=== PATIENT | female | born 1945 | race Caucasian/White ===

== ENCOUNTER → 2017-03-30 | Day surgery (SDC) | payer OTHER ==
[2017-03-28 12:23] LABS: BASO % 0.2 %; BASO ABS # 0.02 K/uL (0-0.2); COMPLETE YES; EOS % 1.6 %; HEMATOCRIT 38.6 % (37-47); IG% 0.2 %; LYMPH % 23.5 %; LYMPH ABS # 2.16 K/uL (1.2-3.4); MEAN CELL VOLUME 90.2 fL (80-100); MEAN CORPUSCULAR HEMOGLOBIN 29.4 pg (25-34); MEAN CORPUSCULAR HGB CONC 32.6 g/dl (32-36); MEAN PLATELET VOLUME 9.5 fL (7.4-10.4); MONO % 6.2 %; NEUT % 68.3 %; PLATELET COUNT 262 K/uL (130-400); RED BLOOD COUNT 4.28 M/uL (4.2-5.4)
[2017-03-28 13:06] LABS: BLOOD UREA NITROGEN 14 mg/dl (7-18); BUN/CREATININE RATIO 14.7 (10-20); CARBON DIOXIDE 27 mmol/L (21-32); CHLORIDE 100 mmol/L (98-107); CREATININE 0.93 mg/dl (0.60-1.20); GLUCOSE 215 mg/dl (70-99); POTASSIUM 4.4 mmol/L (3.5-5.1); SODIUM 139 mmol/L (136-145)
[2017-03-28 13:08] LABS: CALCIUM 9.3 mg/dl (8.5-10.1)
[2017-03-28 15:10] VITALS: Ht 154.9 cm; Wt 59.5 kg
[~2017-03-30] VITALS: Ht 154.9 cm; Wt 59.5 kg
[~2017-03-30] MED LIST: ALBU0.5N2 NEB; ASTIN/15 NAE; ATROPINE SULFATE 0.1 MG/ML 5ML SYR IV PRN; BUPIVACAINE/EPINEPHRINE 0.25% 1:200,000 30 ML VIAL ONE; BUPIVACAINE/EPINEPHRINE 0.5% MPF 1:200,000 30 ML VIAL ONE; CALC-452 PO; CEFAZOLIN 2000 MG/60 ML D5W IV SCH; DEXAMETHASONE SOD INJ 4 MG/ML VIAL ONE; EpHEDrine SULFATE INJ 50 MG/ML AMP IV PRN; EpINEphrine INJ 1MG/ML AMP 1 MG/ML AMP ONE; FENTANYL CITRATE INJ 50 MCG/1 ML 2 ML VIAL IV PRN; FENTANYL CITRATE INJ 50 MCG/1 ML 2 ML VIAL ONE; FURO20TA PO; GLC500 PO; GLIP-199 PO; IBUP-1451 PO; IPRA0.03 NAE; KETO10TA PO; LABETALOL HCL IV 5 MG/ML 20ML IV ONE; LACTATED RINGER'S 1000ML 1,000 ML IV SCH; LIDOCAINE HCL 2% 2 ML VIAL (20MG/ML) ONE; LISI-729 PO; METO-478 PO; MIDAZOLAM HCL 1 MG/ML 2ML VIAL ONE; OMEP20CA9 PO; ONDANSETRON INJ 2 MG/ML 2 ML VIAL IV PRN; ONDANSETRON INJ 2 MG/ML 2 ML VIAL ONE; OXYC-57 PO; OXYCODONE/ACETAMINOPHEN 5-325 TAB PO PRN; POTA1CAP2 PO; PRM625 PO; PROMETHAZINE HCL INJ 6.25 MG in SODIUM CHLORIDE 0.9% 50ML 50 ML IV PRN; PROPOFOL IV EMULSION 10 MG/ML 20 ML VIAL IV ONE; RANI300T2 PO; ROSU5TAB PO; RRALBUT2.5 INH; SODIUM CHLORIDE 0.9% 1000ML 1,000 ML IV SCH; SYMIN INH
--- NOTE | 2017-03-30 07:01 | History & Physical Bridge - [place] ---
H&P Re-Evaluation Bridge Note: I have examined the patient, reviewed the History & Physical and in the interval since the performance of the History & Physical I have noted the following changes of clinical significance: No changes noted
--- NOTE | 2017-03-30 12:26 | Discharge Instructions-SurgCtr ---
Discharge Instructions Date of Service Mar 30, 2017. Visit Reason for Visit: Full Thickness Rotator Cuff Tear M75.151 Discharge Discharge Diagnosis / Problem: SAME ABOVE Discharge Goals Goal(s): Decrease discomfort, Improve function Medications Stopped Medications Name(s): Metformin last taken Monday Restart Stopped Medication(s): MAY RESTART 03/30/2016 Activity Recommendations Activity Limitations: per Instructions/Follow-up section Lifting Limitations: until after follow-up appointment Exercise/Sports Limitations: until after follow-up appointment Shower/Bathe: tomorrow Anesthesia . Post Anesthesia Instructions: If you have had General Anesthesia or IV Sedation: * Do not drive today. * Resume driving when surgeon permits. * Do not make important decisions or sign legal documents today. * Call surgeon for: 1. Temperature elevations greater than 101 degrees F. 2. Uncontrollable pain. 3. Excessive bleeding. 4. Persistent nausea and vomiting. 5. Medication intolerance (nausea, vomiting or rash). * For nausea and vomiting use only clear liquids such as: tea, soda, bouillon until nausea subsides, then gradually increase diet as tolerated. * If you have any concerns or questions, call your surgeon's office. If physician is unavailable and it is an emergency, call 911 or go to the nearest emergency room. . Instructions / Follow-Up Instructions / Follow-Up MEDICATIONS: * Resume previous medications unless instructed otherwise by your surgeon. * Always take pain medication on a full stomach or with food to avoid upset stomach. * Do not drink alcohol or drive while taking narcotics. * Ibuprofen or Tylenol may be taken if narcotic not needed. SPECIAL CARE INSTRUCTIONS: __ None _X_ Keep extremity elevated and iced x 48 hours; apply ice 20-30 minutes 8-10 times/day. May remove at night. __ Sling __24 hrs/day __ Remove at night _X_ Shoulder Immobilizer (MAY REMOVE AFTER 48 HOURS ONLY TO SHOWER AND FOR THERAPY) _X_ 24 hrs/day __ Remove at night _X_ Dressing __ Maintain until seen in office, may shower with plastic over site _X_ Remove dressings in 24-48 hours and then may shower _X_ Cover incisions with band-aids after showering __ Do not remove steri-strips Call physician if chills or temperature rises above 102 degrees or pain unrelieved by prescribed pain medications at . . Diet Recommendations Home Diet: no limitations Fluid Restriction: None Procedures Procedures Performed: Right Shoulder Arthroscopy Medium Rotator Cuff Repair, Biceps Tenodesis Pending Studies Studies pending at discharge: no Work Instructions Return To Work: after follow-up Lifting Limitations: NO LIFTING WITH RIGHT ARM Medical Emergencies . Who to Call and When: Medical Emergencies: If at any time you feel your situation is an emergency, please call 911 immediately. . Non-Emergent Contact Non-Emergency issues call your: Primary Care Provider Call Non-Emergent contact if: you have a fever, temperature is above 101.5 . . "Provider Documentation" section prepared by Yousif Cunningham. .
--- NOTE | 2017-03-30 13:24 | Anesthesia Progress Nt - [facility] ---
Anesthesia Post Op Note Date & Time Mar 30, 2017 at 13:24 Vital Signs Pain Intensity: 0 Vital Signs Past 12 Hours Date Time Temp Pulse Resp B/P (MAP) Pulse Ox O2 Delivery O2 Flow Rate FiO2 03/30/17 13:01 36.7 76 20 142/92 94 Room Air 03/30/17 12:58 77 23 03/30/17 12:58 79 23 93 03/30/17 12:57 145/76 03/30/17 12:53 78 18 93 03/30/17 12:53 78 18 03/30/17 12:52 152/90 03/30/17 12:48 77 22 97 03/30/17 12:48 77 22 03/30/17 12:47 155/69 03/30/17 12:43 75 19 03/30/17 12:43 75 19 100 03/30/17 12:42 167/83 03/30/17 12:38 75 19 03/30/17 12:38 74 19 100 03/30/17 12:37 172/81 03/30/17 12:34 153/73 03/30/17 12:33 74 17 100 03/30/17 12:33 74 17 03/30/17 12:32 75 25 03/30/17 12:32 75 25 164/112 94 03/30/17 12:32 75 25 164/112 94 03/30/17 12:32 75 25 03/30/17 12:27 76 16 175/80 100 03/30/17 12:27 78 16 03/30/17 12:27 78 16 03/30/17 12:27 76 16 175/80 100 03/30/17 12:22 76 17 03/30/17 12:22 75 17 168/94 93 03/30/17 12:22 75 17 168/94 93 03/30/17 12:22 76 17 03/30/17 12:17 77 25 03/30/17 12:17 76 25 169/78 99 03/30/17 12:17 77 25 03/30/17 12:17 76 25 169/78 99 03/30/17 12:14 36.2 78 16 164/69 97 Mask 5 03/30/17 10:27 0 03/30/17 10:27 0 03/30/17 10:26 92 03/30/17 10:26 92 29 99 03/30/17 10:25 86 8 99 03/30/17 10:25 87 03/30/17 10:22 155/95 03/30/17 10:20 91 03/30/17 10:20 90 16 99 03/30/17 10:17 162/110 03/30/17 10:15 89 03/30/17 10:15 88 26 100 03/30/17 10:14 87 19 99 03/30/17 10:14 87 03/30/17 10:12 163/72 03/30/17 10:09 85 20 03/30/17 10:08 143/77 03/30/17 10:04 68 18 100 03/30/17 10:04 69 03/30/17 10:03 172/75 03/30/17 09:59 71 18 100 03/30/17 09:59 72 03/30/17 09:58 139/106 03/30/17 09:54 71 03/30/17 09:54 71 18 100 03/30/17 09:52 207/114 03/30/17 09:49 71 20 03/30/17 07:26 36.5 70 14 160/102 (121) 96 Room Air Notes Mental Status: alert / awake / arousable, participated in evaluation Pt Amnestic to Procedure: Yes Nausea / Vomiting: adequately controlled Pain: adequately controlled Airway Patency, RR, SpO2: stable & adequate BP & HR: stable & adequate Hydration State: stable & adequate Anesthetic Complications: no major complications apparent block working well in pacu
[2017-03-30 13:50] VITALS: TEMP 36.6
[2017-03-30 14:14] VITALS: BP 148/81; PULSE 75; O2SAT 96
--- NOTE | 2017-03-30 14:15 | OPERATIVE REPORT ---
DATE OF OPERATION: 03/30/2017 PREOPERATIVE DIAGNOSIS: Re-rupture of the right rotator cuff with adhesive capsulitis and biceps tendinopathy. POSTOPERATIVE DIAGNOSIS: Same. PROCEDURE: Right shoulder diagnostic arthroscopy with extensive debridement, lysis of adhesions, acromioplasty, medium size rotator cuff repair and arthroscopic biceps tenodesis. SURGEON: Dr. Krishan Jha. SHIPPING/RECEIVING CLERK: Syd Cunningham PA-C, whose assistance was necessary for positioning the arm and helping with instrumentation. ANESTHESIA: General with a right interscalene nerve block. COMPLICATIONS: None. CONDITION: Stable to PACU. INDICATIONS: Maria D is a pleasant 71-year-old female who presented to my office with complaints of right shoulder pain. She slipped on black ice about 5 months ago. She has a history of an open rotator cuff repair back about 30 years ago. She had severe pain and weakness. She also had a lot of tightness in her shoulder. MRI showed a medium sized rotator cuff tear and clinical examination was diagnostic for adhesive capsulitis. She elected to proceed with arthroscopy. PROCEDURE: On 03/30/2017, she arrived at [facility] for the above procedure. She was seen in the preoperative holding area and the operative extremity was identified and signed. She was given a preoperative antibiotic and a right interscalene nerve block. She was taken back to the operating room, laid on the table in supine position and put under general anesthesia. She was then put into the beachchair position. The right shoulder was prepped and draped in sterile fashion. Time-out was done and the patient and operative extremity was properly identified. On preoperative physical examination, she only had about 80 degrees of abduction. Gentle manipulation was done and I was able to get slightly more motion. The scope was placed in the posterior portal. Diagnostic arthroscopy showed significant redness of the rotator interval and the middle glenohumeral ligament. There was some fraying of the anterior and superior labrum. There was a complete tear of the supraspinatus. The infraspinatus, teres minor and subscapularis were all checked and intact. The biceps tendon was red and inflamed and slightly frayed. An anterior portal was made. A shaver was used to do a debridement of some of the intra-articular structures. An ablator and a shaver were used to do a lysis of adhesions including the entire rotator interval and the middle glenohumeral ligament which gave her full range of motion of her shoulder. The scope was then put into the subacromial space. A lateral portal was made. A shaver was used to do a complete subacromial and subdeltoid bursectomy. Significant time was spent removing adhesions and scar tissue from the previous procedure. Attention was turned to the rotator cuff. There was a medium size crescent shape tear. An additional anterolateral portal was made. Estephania cannulas were placed in each of the lateral portals. The rotator cuff was then fixed with an Arthrex SpeedBridge configuration using BioComposite SwiveLock suture anchors. The bone quality was rather poor and the tissue quality was fair. I was able to get a nice repair. The long head of the biceps tendon was tenodesed to the anterior lateral SwiveLock anchor with a FiberLink suture. Multiple pictures were taken. The scope was placed back into the glenohumeral joint. The articular margin of the rotator cuff had been restored. Any final debris was removed and the biceps tendon was arthroscopically tenotomized. Final pictures were taken. Arthroscopic instruments were removed from the shoulder. Portal sites were closed with 3-0 nylon. She was placed in a soft dressing and a right arm sling. She was extubated, transferred to a litter and taken to the postanesthesia care unit in stable condition. She tolerated the procedure well. I attest to the content of the Intraoperative Record and any orders documented therein. Any exception s are noted below.
--- NOTE | 2017-03-30 17:03 | [facility] Post Operative Brief Note ---
Immediate Operative Summary Operative Date Mar 30, 2017. Pre-Operative Diagnosis Medium rotator cuff tear right shoulder Post-Operative Diagnosis Same as preop Procedure(s) Performed Right Shoulder Arthroscopy Medium Rotator Cuff Repair, Biceps Tenodesis Surgeon Dr. Jha Pen Or Pencil Assembly Machine Operator Surgeon(s) Yousif Cunningham PA-C Estimated Blood Loss 5 mL Findings as above Specimens None Complication(s) None Disposition Recovery Room / PACU
== END | disposition home or self-care (01) ==
LOC: X.SURG 07:09
PROVIDERS: ATTEND Orthopaedic Surgery
DX: S46.011A Strain of muscle(s) and tendon(s) of the rotator cuff of right shoulder, initial encounter (principal); W00.0XXA Fall on same level due to ice and snow, initial encounter; M75.01 Adhesive capsulitis of right shoulder; I10 Essential (primary) hypertension; E78.00 Pure hypercholesterolemia, unspecified; J45.909 Unspecified asthma, uncomplicated

== ENCOUNTER → 2017-07-18 | Outpatient (CLI) | payer OTHER ==
[~2017-07-18] MED LIST changes: -ATROPINE SULFATE 0.1 MG/ML 5ML SYR IV PRN; -BUPIVACAINE/EPINEPHRINE 0.25% 1:200,000 30 ML VIAL ONE; -BUPIVACAINE/EPINEPHRINE 0.5% MPF 1:200,000 30 ML VIAL ONE; -CEFAZOLIN 2000 MG/60 ML D5W IV SCH; -DEXAMETHASONE SOD INJ 4 MG/ML VIAL ONE; -EpHEDrine SULFATE INJ 50 MG/ML AMP IV PRN; -EpINEphrine INJ 1MG/ML AMP 1 MG/ML AMP ONE; -FENTANYL CITRATE INJ 50 MCG/1 ML 2 ML VIAL IV PRN; -FENTANYL CITRATE INJ 50 MCG/1 ML 2 ML VIAL ONE; -LABETALOL HCL IV 5 MG/ML 20ML IV ONE; -LACTATED RINGER'S 1000ML 1,000 ML IV SCH; -LIDOCAINE HCL 2% 2 ML VIAL (20MG/ML) ONE; -METO-478 PO; +METO1TAB31 PO; -MIDAZOLAM HCL 1 MG/ML 2ML VIAL ONE; -ONDANSETRON INJ 2 MG/ML 2 ML VIAL IV PRN; -ONDANSETRON INJ 2 MG/ML 2 ML VIAL ONE; -OXYCODONE/ACETAMINOPHEN 5-325 TAB PO PRN; -PROMETHAZINE HCL INJ 6.25 MG in SODIUM CHLORIDE 0.9% 50ML 50 ML IV PRN; -PROPOFOL IV EMULSION 10 MG/ML 20 ML VIAL IV ONE; -RANI300T2 PO; -SODIUM CHLORIDE 0.9% 1000ML 1,000 ML IV SCH
[2017-07-18 17:35] LABS: BASO % 0.4 %; BASO ABS # 0.03 K/uL (0-0.2); COMPLETE YES; EOS % 3.9 %; HEMATOCRIT 37.7 % (37-47); IG% 0.1 %; LYMPH ABS # 2.61 K/uL (1.2-3.4); MEAN CELL VOLUME 86.9 fL (80-100); MEAN CORPUSCULAR HEMOGLOBIN 28.8 pg (25-34); MEAN CORPUSCULAR HGB CONC 33.2 g/dl (32-36); MEAN PLATELET VOLUME 9.7 fL (7.4-10.4); MONO % 5.1 %; NEUT % 59.5 %; PLATELET COUNT 308 K/uL (130-400); RED BLOOD COUNT 4.34 M/uL (4.2-5.4); WHITE BLOOD COUNT 8.42 K/uL (4.8-10.8)
[2017-07-18 17:38] LABS: BLOOD UREA NITROGEN 14 mg/dl (7-18); BUN/CREATININE RATIO 17.1 (10-20); CALCIUM 9.9 mg/dl (8.5-10.1); CARBON DIOXIDE 26 mmol/L (21-32); CHLORIDE 98 mmol/L (98-107); CREATININE 0.84 mg/dl (0.60-1.20); GLUCOSE 124 mg/dl (70-99); POTASSIUM 4.4 mmol/L (3.5-5.1); SODIUM 134 mmol/L (136-145)
== END | disposition home or self-care (01) ==
LOC: C.LABBC 14:24
PROVIDERS: ATTEND Orthopaedic Surgery
DX: Z01.812 Encounter for preprocedural laboratory examination (principal); M75.42 Impingement syndrome of left shoulder

== ENCOUNTER → 2017-07-27 | Day surgery (SDC) | payer OTHER ==
[2017-07-24 13:34] VITALS: Ht 154.9 cm; Wt 59.5 kg
[~2017-07-27] VITALS: Ht 154.9 cm; Wt 59.5 kg
[~2017-07-27] MED LIST changes: -ALBU0.5N2 NEB; +ATROPINE SULFATE 0.1 MG/ML 5ML SYR IV PRN; +BUPIVACAINE/EPINEPHRINE 0.25% 1:200,000 30 ML VIAL ONE; +CEFAZOLIN 2000 MG/60 ML D5W IV SCH; +DEXAMETHASONE SOD INJ 4 MG/ML VIAL ONE; +EpHEDrine SULFATE INJ 50 MG/ML AMP IV PRN; +EpINEphrine INJ 1MG/ML AMP 1 MG/ML AMP ONE; +FENTANYL CITRATE INJ 50 MCG/1 ML 2 ML VIAL ONE; +HYDROmorphone INJ 2 MG/ML SYR/VIAL IV PRN; +LACTATED RINGER'S 1000ML 1,000 ML IV SCH; +LIDOCAINE HCL 1% MPF 2 ML VIAL ONE; +LIDOCAINE HCL 2% 2 ML VIAL (20MG/ML) ONE; +MIDAZOLAM HCL 1 MG/ML 2ML VIAL ONE; +ONDANSETRON INJ 2 MG/ML 2 ML VIAL IV PRN; +ONDANSETRON INJ 2 MG/ML 2 ML VIAL ONE; +OXYCODONE/ACETAMINOPHEN 5-325 TAB PO PRN; +PHENYLEPHRINE 100MCG/ML 5ML SYR IV PRN; +PROPOFOL IV EMULSION 10 MG/ML 20 ML VIAL IV ONE; +ROPIVACAINE 0.5% 5 MG/ML 30 ML VIAL ONE; +ROPIVACAINE/NSS 0.2% 250 ML PUMP INFIL PRN; +SODIUM CHLORIDE 0.9% 1000ML 1,000 ML IV PRN; +SODIUM CHLORIDE 0.9% 1000ML 1,000 ML IV SCH
--- NOTE | 2017-07-27 11:04 | [facility] Post Operative Brief Note ---
Immediate Operative Summary Operative Date Jul 27, 2017. Pre-Operative Diagnosis Left Shoulder Impingement and Biceps Tenodesis Post-Operative Diagnosis Same and Calcific Tendonitis Procedure(s) Performed Left Shoulder Arthroscopy Subacromial Decompression Distal Clavicle Resection Biceps Tenodomy Surgeon Dr. Jha It Associate Surgeon(s) Liz Cunningham PA-C Estimated Blood Loss 5ml Findings as above Specimens None Complication(s) None Disposition Recovery Room / PACU
--- NOTE | 2017-07-27 11:19 | Discharge Instructions-SurgCtr ---
Discharge Instructions Date of Service Jul 27, 2017. Visit Reason for Visit: Impingement Syndrome Of Shoulder Discharge Discharge Diagnosis / Problem: SAME ABOVE Discharge Goals Goal(s): Decrease discomfort, Improve function Medications Stopped Medications Name(s): Told to stop taking Metformin two days before surgery. Restart Stopped Medication(s): MAY RESTART 07/27/2017 Activity Recommendations Activity Limitations: resume your previous activity Lifting Limitations: none Exercise/Sports Limitations: gradually increase as tolerated Shower/Bathe: tomorrow Anesthesia . Post Anesthesia Instructions: If you have had General Anesthesia or IV Sedation: * Do not drive today. * Resume driving when surgeon permits. * Do not make important decisions or sign legal documents today. * Call surgeon for: 1. Temperature elevations greater than 101 degrees F. 2. Uncontrollable pain. 3. Excessive bleeding. 4. Persistent nausea and vomiting. 5. Medication intolerance (nausea, vomiting or rash). * For nausea and vomiting use only clear liquids such as: tea, soda, bouillon until nausea subsides, then gradually increase diet as tolerated. * If you have any concerns or questions, call your surgeon's office. If physician is unavailable and it is an emergency, call 911 or go to the nearest emergency room. . Instructions / Follow-Up Instructions / Follow-Up MEDICATIONS: * Resume previous medications unless instructed otherwise by your surgeon. * Always take pain medication on a full stomach or with food to avoid upset stomach. * Do not drink alcohol or drive while taking narcotics. * Ibuprofen or Tylenol may be taken if narcotic not needed. SPECIAL CARE INSTRUCTIONS: __ None _X_ Keep extremity elevated and iced x 48 hours; apply ice 20-30 minutes 8-10 times/day. May remove at night. _X_ Sling (WEAR FOR COMFORT ONLY) __24 hrs/day __ Remove at night __ Shoulder Immobilizer __ 24 hrs/day __ Remove at night _X_ Dressing __ Maintain until seen in office, may shower with plastic over site _X_ Remove dressings in 24-48 hours and then may shower _X_ Cover incisions with band-aids after showering __ Do not remove steri-strips Call physician if chills or temperature rises above 102 degrees or pain unrelieved by prescribed pain medications at . . Diet Recommendations Home Diet: no limitations Fluid Restriction: None Procedures Procedures Performed: Left Shoulder Arthroscopy Subacromial Decompression Distal Clavicle Resection Biceps Tenodomy Pending Studies Studies pending at discharge: no Work Instructions Return To Work: after follow-up Medical Emergencies . Who to Call and When: Medical Emergencies: If at any time you feel your situation is an emergency, please call 911 immediately. . Non-Emergent Contact Non-Emergency issues call your: Primary Care Provider Call Non-Emergent contact if: you have a fever, temperature is above 101.5 . . "Provider Documentation" section prepared by Yousif Cunningham. .
--- NOTE | 2017-07-27 11:33 | OPERATIVE REPORT ---
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 POSTOPERATIVE DIAGNOSES: Acromioclavicular joint arthritis, biceps tendinitis and calcific tendonitis of the left shoulder. PROCEDURE: Left shoulder diagnostic arthroscopy with extensive debridement including removal of calcific tendinitis, revision distal clavicle resection, revision acromioplasty and biceps tenotomy. SURGEON: Dr. Krishan Jha. FIREFIGHTER: Syd Cunningham PA-C, whose assistance was necessary for positioning the arm and helping with instrumentation. ANESTHESIA: General with a left interscalene nerve block. COMPLICATIONS: None. CONDITION: Stable to PACU. INDICATIONS: Ashley is a pleasant 71-year-old female who I did a right shoulder arthroscopic rotator cuff repair on about 4 months ago. She has done very well with that. She has been having chronic pain in her left shoulder. She had an open left shoulder acromioplasty and distal clavicle resection about 25 years ago. I did not have the operative report for that. She was having subacromial pain and some pain over the distal clavicle and the biceps molly mechanism. MRI showed scatter from the previous open procedure, but did not show any rotator cuff tears. She elected to undergo arthroscopy. DESCRIPTION OF PROCEDURE: On 07/27/2017, she arrived at [facility] for the above procedure. She was seen in the preoperative holding area and the operative extremity was identified and signed. She was given a preoperative antibiotic and a left interscalene nerve block. She was taken back to the operating room, laid on the table in supine position and put under general anesthesia. She was then put into the beachchair position. The left shoulder was prepped and draped in sterile fashion. Time-out was done and the patient and operative extremity was properly identified. A scope was placed in the posterior portal. Diagnostic arthroscopy showed no cartilage damage to the humeral head or the glenoid. There were a lot of fraying of the anterior and superior labrum. The superior labrum was detached. There was some fraying of the upper border of subscapularis and the anterior supraspinatus with enlargement of the biceps molly mechanism. The rotator cuff tear involved only about 5% of the articular side of the tendon. The majority of the tendon looked fine. An anterior portal was made. A shaver was used to do a debridement of some of the intra-articular structures including debriding back the labrum and the articular side of the rotator cuff. The biceps tendon was pulled into the joint and there was some dorsal sided redness. The biceps tendon was then arthroscopically tenotomized. The scope was then put into the subacromial space. A lateral portal was made. A shaver was used to do a complete subacromial and subdeltoid bursectomy. An ablator was used to tease the coracoacromial ligament off the undersurface of the acromion and a 5-0 karri was used to do a revision acromioplasty to smooth out the undersurface of the acromion and take care of bone spurring toward the clavicle. Attention was then turned to the distal clavicle. Through the anterior portal, a shaver and ablator were used to skeletonize the distal clavicle. There appeared to be appropriate previous resection. A 5-0 karri was used to clean up the end of the clavicle, may be only removing another mm. Hopefully, this will help with some of her pain at the distal clavicle, but I did not want to remove any significant bone. A shaver was then used to remove any excess debris and the bursal side of the rotator cuff was examined extensively without evidence of tear. At this point, I did see a large area of calcific tendinitis. A shaver and a probe were used to better define the area of calcific tendinitis and a shaver was used to continue extensive debridement and clean out all of the calcific tissue. Significant time was spent to ensure complete removal of the calcific tendinitis. Unfortunately, there was not enough of a defect toward a rotator cuff repair. Multiple pictures were taken. Arthroscopic instruments removed from the shoulder. Portal sites were closed with 3-0 nylon. She was then placed in a soft dressing and regular arm sling. She was then extubated, transferred to a litter and taken to the postanesthesia care unit in stable condition. She tolerated the procedure well. I attest to the content of the Intraoperative Record and any orders documented therein. Any exception s are noted below.
[2017-07-27 11:43] VITALS: TEMP 36.5
[2017-07-27 12:08] VITALS: BP 166/80; PULSE 58; O2SAT 98
--- NOTE | 2017-07-27 12:13 | Anesthesia Progress Nt - [facility] ---
Anesthesia Post Op Note Date & Time Jul 27, 2017 at 12:13 Vital Signs Pain Intensity: 0 Vital Signs Past 12 Hours Date Time Temp Pulse Resp B/P (MAP) Pulse Ox O2 Delivery O2 Flow Rate FiO2 07/27/17 12:08 58 16 166/80 (108) 98 07/27/17 11:43 36.5 66 16 155/65 (95) 96 Room Air 07/27/17 11:37 69 07/27/17 11:37 69 96 07/27/17 11:36 36.6 72 17 164/78 96 Room Air 07/27/17 11:36 164/78 07/27/17 11:32 72 24 07/27/17 11:32 72 24 148/92 96 07/27/17 11:31 139/111 07/27/17 11:27 68 16 07/27/17 11:27 67 16 97 07/27/17 11:26 170/78 07/27/17 11:23 170/82 07/27/17 11:22 67 17 100 07/27/17 11:22 67 17 07/27/17 11:21 168/51 07/27/17 11:17 66 18 100 07/27/17 11:17 66 18 07/27/17 11:16 159/148 07/27/17 11:12 70 18 100 07/27/17 11:12 71 18 07/27/17 11:11 147/60 07/27/17 11:08 157/84 07/27/17 11:07 83 19 100 07/27/17 11:07 75 19 07/27/17 11:07 36.8 77 16 157/84 99 Mask 6 07/27/17 10:01 177/82 07/27/17 09:58 75 0 98 07/27/17 09:58 75 07/27/17 09:57 73 07/27/17 09:57 73 0 100 07/27/17 09:52 74 16 107/87 100 07/27/17 09:52 74 07/27/17 09:47 81 07/27/17 09:47 81 28 126/106 100 07/27/17 09:42 70 07/27/17 09:42 71 23 100 07/27/17 09:41 171/85 07/27/17 09:37 75 07/27/17 09:37 75 26 173/114 100 07/27/17 09:32 73 07/27/17 09:32 72 16 99 07/27/17 09:31 174/65 07/27/17 09:27 71 19 100 07/27/17 09:27 70 07/27/17 09:26 156/91 07/27/17 09:22 71 07/27/17 09:22 71 14 99 07/27/17 09:21 147/80 07/27/17 09:17 74 21 99 07/27/17 09:17 75 07/27/17 09:16 151/98 07/27/17 09:12 73 27 99 07/27/17 09:12 73 07/27/17 09:11 144/112 07/27/17 09:07 73 07/27/17 09:07 72 18 99 07/27/17 09:06 138/89 07/27/17 09:02 72 07/27/17 09:02 73 15 99 07/27/17 09:01 140/86 07/27/17 08:57 74 12 99 07/27/17 08:57 75 07/27/17 08:55 132/99 07/27/17 08:52 76 07/27/17 08:52 75 22 100 07/27/17 08:51 77 07/27/17 08:51 77 20 127/73 99 07/27/17 08:46 86 07/27/17 08:46 86 13 159/102 100 07/27/17 08:41 89 0 159/94 99 07/27/17 08:41 89 07/27/17 08:36 86 07/27/17 08:36 86 33 175/98 99 07/27/17 08:33 176/99 07/27/17 08:31 90 0 100 07/27/17 08:31 89 07/27/17 08:26 85 0 96 07/27/17 08:26 86 07/27/17 08:01 36.6 80 18 156/98 (117) 95 Room Air Notes Mental Status: alert / awake / arousable, participated in evaluation Pt Amnestic to Procedure: Yes Nausea / Vomiting: adequately controlled Pain: adequately controlled Airway Patency, RR, SpO2: stable & adequate BP & HR: stable & adequate Hydration State: stable & adequate Anesthetic Complications: no major complications apparent
== END | disposition home or self-care (01) ==
LOC: X.SURG 07:48
PROVIDERS: ATTEND Orthopaedic Surgery
DX: M75.42 Impingement syndrome of left shoulder (principal); M75.22 Bicipital tendinitis, left shoulder; M19.012 Primary osteoarthritis, left shoulder; K21.9 Gastro-esophageal reflux disease without esophagitis; E11.9 Type 2 diabetes mellitus without complications; I10 Essential (primary) hypertension; J45.909 Unspecified asthma, uncomplicated; Z90.710 Acquired absence of both cervix and uterus; Z82.49 Family history of ischemic heart disease and other diseases of the circulatory system; Z83.3 Family history of diabetes mellitus

== ENCOUNTER 2024-04-09 17:44 | Observation (INO) ==
--- NOTE | 2024-04-09 17:47 | ED Triage Note ---
Date of Service April 09, 2024 Provider in Triage Author: Wilbur Garcia History of Present Illness This patient was briefly evaluated while in triage. An abbreviated physical exam was performed. This patient is a 78-year-old Female who presents to the ED for evaluation of chest pain rating into her left shoulder and left arm. The pain started approximately 2 hours prior to arrival. The patient reported taking 2 of her 's nitroglycerin tablets which did help with the pain. Patient reports that she does have a strong family history of coronary artery disease. Patient reports that she also has recent neck discomfort as well, with slightly worsening pain with movement of the neck. Physical Exam CONSTITUTIONAL: Healthy and well nourished. HEENT: No scleral icterus or conjunctival injection. RESPIRATORY: Clear to auscultation bilaterally with no wheezing, crackles, rhonchi or stridor. CARDIOVASCULAR: Regular rate and rhythm with no murmurs, rubs or gallops. GASTROINTESTINAL: Bowel sounds present in all quadrants. INTEGUMENTARY: No rash or other significant dermatologic conditions noted. HEMATOLOGIC: No ecchymosis or petechiae. PSYCHIATRIC: Positive affect. NEUROLOGIC: No focal neurologic deficits noted. Initial orders for labs and / or imaging were placed and patient was placed in the waiting area until a bed is available. Please see further documentation for the full ED course.
[2024-04-09] MEDS: ASPIRIN CHEW 324 MG PO STA (18:01)
[2024-04-09 18:11] LABS: Basophils # (auto) 0.04 K/uL (0.00-0.20); Basophils % (auto) 0.6 %; Eosinophils # (auto) 0.23 K/uL (0.00-0.50); Eosinophils % (auto) 3.4 %; Hematocrit (blood only) 37.1 % (37.0-47.0); Hemoglobin 12.2 g/dl (12.0-16.0); Immature Granulocytes # (auto) 0.02 K/uL (0.01-0.20); Immature Granulocytes % (auto) 0.3 %; Lymphocytes # (auto) 1.66 K/uL (1.20-3.40); Lymphocytes % (auto) 24.3 %; Mean Corpuscular Hemoglobin 28.8 pg (25.0-34.0); Mean Corpuscular Hgb Conc 32.9 g/dL (32.0-36.0); Mean Corpuscular Volume 87.5 fL (80.0-100.0); Mean Platelet Volume 9.7 fL (9.4-12.4); Monocytes # (auto) 0.39 K/uL (0.11-0.59); Monocytes % (auto) 5.7 %; Neutrophils % (auto) 65.7 %; Platelet Count 282 K/uL (130-400); RDW Coefficient of Variation 13.5 % (11.5-14.5); RDW Standard Deviation 43.1 fL (36.4-46.3); Red Blood Count 4.24 M/uL (4.20-5.40); White Blood Count 6.84 K/ul (4.8-10.8)
[2024-04-09 18:32] LABS: Alanine Aminotransferase 8 U/L (7-52); Albumin Globulin Ratio 1.5 (0.9-2); Albumin Level 3.9 gm/dl (3.4-5.0); Alkaline Phosphatase 66 U/L (34-104); Anion Gap 10 (3-11); Aspartate Aminotransferase 11 U/L (13-39); BUN Creatinine Ratio 25.5 (10-20); Bilirubin,Total 0.2 mg/dl (0.2-1.0); Blood Urea Nitrogen 24 mg/dl (6-23); Carbon Dioxide 24 mmol/L (21-32); Chloride 97 mmol/L (98-107); Est GFR (African American) 67.8 ml/min; Est GFR (Non-African American) 58.5 ml/min; Globulin 2.6 gm/dl (2.5-4.0); Glucose 478 mg/dl (70-99(Fasting)); Lipase 49 U/L (11-82); Potassium 4.3 mmol/L (3.5-5.1); Sodium 131 mmol/L (136-145); Total Protein 6.5 gm/dl (6.0-8.3)
[2024-04-09 18:34] LABS: Troponin I High Sensitivity 38.3 pg/ml (0-14)
[2024-04-09 18:38] LABS: INR 0.9 (0.9-1.1); Partial Thromboplastin Ratio 0.9; Partial Thromboplastin Time 25 Seconds (21-31); Prothrombin Time 9.4 Seconds (9.0-12.0)
[2024-04-09] MEDS: NITROGLYCERIN 2% OINTMENT 30GM TUBE EXT STA (19:35)
[2024-04-09] MEDS: NITROGLYCERIN SL 0.4 MG/TAB TAB SL STA (19:35)
[2024-04-09] MEDS: NovoLIN-R INSULIN PER UNIT CHARGE IV STA (19:36)
--- NOTE | 2024-04-09 19:46 | XRay Report ---
XR chest 1V portable CLINICAL HISTORY: Chest pain, nonspecific TECHNIQUE: Single frontal radiograph of the chest was obtained. Comparison: None available at the time of this dictation. FINDINGS: No lines and tubes are seen. The cardiomediastinal silhouette is normal. The lungs are clear. No evid ence of pleural effusion or pneumothorax. IMPRESSION: No acute chest disease. ACT 112: Negative or not required by law. Electronically signed by: Vicente Almendarez M.D. 04/09/2024 7:45 PM
--- NOTE | 2024-04-09 20:16 | History & Physical Report ---
Date of Service April 09, 2024 Assessment & Plan (1) Chest pain: (2) DM (diabetes mellitus), type 2: (3) Hypertension: (4) Asthma: (5) GERD (gastroesophageal reflux disease): Plan This is a 78-year-old female with PMH of uncontrolled type 2 diabetes, dyslipidemia, asthma, GERD and other medical problems listed below who presents from home with chest pain that came on suddenly at rest today at 2:30pm. Patient seen in collaboration with Dr. Shahid. Please see addendum for plan details. I spent a total of 65 minutes coordinating, documenting, and providing care for this patient excluding time spent in the performance of separately billed services. History of Present Illness Chief Complaint: Chest pain Primary Care Provider: Anders Patel MD This is a 78-year-old female with PMH of type 2 diabetes (a1c 9.4 in Dec 16), dyslipidemia, asthma, GERD and other medical problems listed below who presents from home with chest pain. Patient reports she was sitting at home on her couch this afternoon around 230pm when she developed sudden onset pressure to left side of chest. Pain radiated to the back of her shoulder and down her left arm to her elbow. Pain has been constant and was only slightly relieved with the nitroglycerin of her 's she took at home and then again in ED. Pain is still a 4/10. Denies any history of known CAD or chest pain in the past. Does have history of diabetes with most recent A1c 9.4 in late November of this year. Also endorses mother having an OH in her 60s. Patient denies any fever, chills, headache, lightheadedness, palpitations, shortness of breath, nausea, vomiting, abdominal pain, dysuria, diarrhea or constipation. No recent medication changes. Does state her blood sugar is typically elevated in the 2-3 100s in the evening and then dips into the 40s or 50s overnight, prompting her to get up and drink some orange juice. No previous echo in outpatient EMR per review. Allergies Allergy/AdvReac Type Severity Reaction Status Date / Time No Known Allergies Allergy Unknown Verified 04/09/24 19:39 Home Medications Medication Instructions Recorded Confirmed Type albuterol sulfate 2.5 mg/3 mL 2.5 mg inhalation Q6H PRN Wheezing 04/09/24 04/09/24 History (0.083 %) solution for nebulization azelastine 137 mcg (0.1 %) nasal 2 spray intranasal BID 04/09/24 04/09/24 History spray aerosol budesonide-formoterol HFA 160 2 puff inhalation BID PRN 04/09/24 04/09/24 History mcg-4.5 mcg/actuation aerosol NEEDED PER PT inhaler (Symbicort) calcium carbonate 1,000 mg PO DAILY 04/09/24 04/09/24 History conjugated estrogens 0.3 mg tablet 0.3 mg PO DAILY 04/09/24 04/09/24 History (Premarin) empagliflozin 25 mg tablet 25 mg PO QAM 04/09/24 04/09/24 History (Jardiance) furosemide 20 mg tablet 36 mg PO DAILY PRN Fluid Retention 04/09/24 04/09/24 History insulin detemir U-100 100 unit/mL 28 unit subcut HS 04/09/24 04/09/24 History (3 mL) subcutaneous pen ipratropium bromide 21 mcg (0.03 2 spray intranasal QID 04/09/24 04/09/24 History %) nasal spray ketoconazole 2 % topical cream 1 applic topical DIRECTED PRN 04/09/24 04/09/24 History AFFECTED AREAS ON FACE lisinopril 5 mg tablet 5 mg PO DAILY 04/09/24 04/09/24 History metformin 850 mg tablet 850 mg PO BID 04/09/24 04/09/24 History metoprolol succinate 25 mg 25 mg PO DAILY 04/09/24 04/09/24 History tablet,extended release 24 hr omeprazole 20 mg capsule,delayed 20 mg PO BID 04/09/24 04/09/24 History release rosuvastatin 5 mg tablet 5 mg PO DAILY 04/09/24 04/09/24 History sodium chloride 0.9 % for 3 ml inhalation QID PRN NEEDED 04/09/24 04/09/24 History nebulization PER PT. Past Med/Surg History Problem List (Updated 04/10/24 @ 00:59 by Justin Poole MD) Elevated troponin (Acute) Chest pain (Acute) GERD (gastroesophageal reflux disease) DM (diabetes mellitus), type 2 Hypertension (Chronic) Asthma (Chronic) Medical History Bursitis of right hip Hamstring strain Surgical History Hx of tonsillectomy H/O: hysterectomy Family History Other Diabetes Heart disease Social History (Updated 04/09/24 @ 21:00 by Celia Prince PA-C) Smoking Status: Never smoker Second Hand Exposure: No; Do You Dip or Chew Tobacco: No; Tobacco Cessation Education Requested by Patient: No Hx Alcohol Use: No Hx Substance Use: No Preferred Language: Stateless Communication Ability: Effective Lockstitch Coat Joiner Required: No Beliefs That Will Affect Care: None Current Living Situation: Spouse Other Information That Helps Us Care for You: No Feels Safe at Home: Yes Safety Concerns: Feels Safe At This Time Assistive Devices: Glasses and Hearing Aid - Bilateral Review of Systems Review of Systems: At least ten systems reviewed and negative except as noted in the HPI. Physical Exam Physical Exam: General Appearance: WD/WN, vitals as above, NAD, sitting up in bed, conversing easily Head: normocephalic, atraumatic Eyes: normal inspection, PERRL, conjunctivae normal, anicteric sclerae ENT: external ear and nose normal, oropharynx normal Neck: normal visual inspection, trachea midline, no thyromegaly Respiratory: normal respiratory effort, lungs clear to auscultation, no wheeze, rales, rhonchi. No accessory muscle use Cardiovascular: regular rate, rhythm, no murmur, normal peripheral pulses, no BLE edema. Vessels: no JVD Chest: normal inspection of chest, CP not reproducible with palpation Abdomen/GI: normal bowel sounds, soft, nontender, no hepatosplenomegaly Extremities/Musculoskeletal: no cyanosis or clubbing, extremities motor strength 5/5 Neurologic: PERRL, EOMI, accommodation nl, no face palsy, no dysarthria, CN's II-XI intact bilaterally and moves all extremities Psychiatric: A+Ox3, euthymic affect Skin: no rashes, normal color, warm/dry Results & Data Results & Data Vital Signs (Past 12 Hours) Vital Signs Temp Pulse Pulse Resp BP BP Pulse Ox 04/09/24 19:51 77 19 120/75 96 04/09/24 19:36 69 17 97 06/18/24 19:35 180/86 H 04/09/24 19:21 71 16 97 04/09/24 19:17 75 20 98 04/09/24 19:15 67 18 168/78 H 98 04/09/24 19:15 98 04/09/24 19:12 168/78 H 04/09/24 19:12 72 04/09/24 17:46 36.7 C 84 16 165/82 H 97 O2 Del Method 04/09/24 19:51 04/09/24 19:36 04/09/24 19:35 04/09/24 19:21 04/09/24 19:17 Room Air 04/09/24 19:15 Room Air 04/09/24 19:15 Room Air 04/09/24 19:12 04/09/24 19:12 04/09/24 17:46 Room Air Laboratory Results Short CBC 04/09/24 Range/Units 17:58 WBC 6.84 (4.8-10.8) K/ul Hgb 12.2 (12.0-16.0) g/dl Hct 37.1 (37.0-47.0) % Plt Count 282 (130-400) K/uL BMP 04/09/24 17:58 Sodium 131 L Potassium 4.3 Chloride 97 L Carbon Dioxide 24 BUN 24 H Creatinine 0.94 Glucose 478 H* Calcium 9.0 Liver Function 04/09/24 Range/Units 17:58 Total Bilirubin 0.2 (0.2-1.0) mg/dl AST 11 L (13-39) U/L ALT 8 (7-52) U/L Alkaline Phosphatase 66 (34-104) U/L Albumin 3.9 (3.4-5.0) gm/dl Diagnostic Findings Chest X-Ray 04/09/24 17:48 XR chest 1V portable CLINICAL HISTORY: Chest pain, nonspecific TECHNIQUE: Single frontal radiograph of the chest was obtained. Comparison: None available at the time of this dictation. FINDINGS: No lines and tubes are seen. The cardiomediastinal silhouette is normal. The lungs are clear. No evidence of pleural effusion or pneumothorax. IMPRESSION: No acute chest disease. ACT 112: Negative or not required by law. Electronically signed by: Vicente Almendarez M.D. 04/09/2024 7:45 PM Supervising Physician Co-Signing Physician Notes IM ATTENDING : Patient seen and examined. History obtained from patient and records. Concur with salient points upon review of preceding documentation by Ms. Celia Prince PA-C. I take responsibility for plan of care below. In addition, patient left-sided chest pain unresponsive to nitroglycerin. Highest SBP of 180s documented at the ER. FINAL ASSESSMENT AND PLAN as follows : Chest pain possibly from uncontrolled hypertension Troponin elevation secondary to above DM2, insulin requiring, suboptimal control as of recent hemoglobin A1c of 9.26 November 2023 Hyperlipidemia on statin Rx GERD stable on regimen OBS PCU Titrate home lisinopril Follow troponin TTE Basal bolus insulin, ISS BG goal 1 10-1 40, carb count coverage, update hemoglobin A1c DVT prophylaxis. Jamie subcu Full code Text document was generated using [employer] voice recognition software. It may contain grammatical or spelling errors. Kindly contact undersigned for clarification of any documentation item in question.
[2024-04-09 20:18] LABS: Magnesium 1.9 mg/dl (1.7-2.4)
[2024-04-09] MEDS: OPTIRAY 320 125ml IV ONE (20:18)
[2024-04-09 20:20] LABS: Troponin I High Sensitivity 37.5 pg/ml (0-14)
[2024-04-09] MEDS: ONDANSETRON INJ 2 MG/ML 2 ML VIAL IV STA (20:37)
[2024-04-09] MEDS: lisinopril 5 MG TAB PO ONE (20:37)
[2024-04-09] MEDS: MoRPHine SULFATE 4 MG/ML 1 ML CARP\\VIAL IV PRN (20:37)
[2024-04-09] MEDS: SODIUM CHLORIDE 0.9% 1,000 ML IV ONE (21:02)
[2024-04-09] MEDS ORDERED: GLUCOSE 40% GEL 15 GM TUBE PO PRN (21:45)
[2024-04-09] MEDS ORDERED: GLUCAGON FOR INJ 1 MG VIAL SQ PRN (21:45)
[2024-04-09] MEDS ORDERED: GLUCOSE 10 TAB/TUBE PO PRN (21:45)
[2024-04-09] MEDS ORDERED: DEXTROSE 50% 50 ML SYRINGE IV PRN (21:45)
[2024-04-09] MEDS ORDERED: CARBOHYDRATES FOR HYPOGLYCEMIA PO PRN (21:45)
[2024-04-09] MEDS ORDERED: ACETAMINOPHEN 325 MG TAB PO PRN (21:49)
[2024-04-09] MEDS ORDERED: PROMETHAZINE HCL 6.25 MG in SODIUM CHLORIDE 0.9% 50 ML IV PRN (21:49)
[2024-04-09] MEDS ORDERED: LORazepam 0.5 MG TAB PO PRN (21:49)
--- NOTE | 2024-04-09 22:20 | CT Scan Report ---
Exam(s): CTA CHEST IV Amt: 120ml optiray 320 EXAM: CT Angiography Chest With Intravenous Contrast CLINICAL HISTORY: Left chest pain, eval for PE. TECHNIQUE: Axial computed tomographic angiography images of the chest with intravenous contrast. CTDI is 17.22 mGy and DLP is 533.06 mGy-cm. Automated exposure control was utilized for the study. A dose lowering technique was utilized adhering to the principles of ALARA. 3D and MIP reconstructed images were created and reviewed. COMPARISON: Chest x-ray 04/09/2024. FINDINGS: Pulmonary arteries: No pulmonary embolism. Aorta: No thoracic aortic aneurysm or dissection. Lungs: No consolidation. Minimal peribronchial thickening. Pleural space: No pleural effusion. No pneumothorax. Heart: No cardiomegaly. No pericardial effusion. No evidence of RV dysfunction. Mediastinum: Small hiatal hernia. Bones/joints: No acute fracture. Degenerative changes of the spine. Soft tissues: Unremarkable. Lymph nodes: Unremarkable. No enlarged lymph nodes. IMPRESSION: No pulmonary embolism. Minimal peribronchial thickening. No associated pneumonia. Electronically signed by: Karlo Vaz M.D. 04/09/24 22:18 PM
[2024-04-09] MEDS ORDERED: ALBUT/IPRATROP 3MG/0.5MG NEB 3 ML VIAL NEB PRN (22:27)
[2024-04-09] MEDS: LANTUS PER UNIT CHARGE SQ STA (22:35)
--- NOTE | 2024-04-10 00:59 | Emergency Department Note ---
Impression & Plan Chest pain, Elevated troponin ED Provider Note NAME: DEEPIKA KATE AGE: 78 SEX: Female INFORMANT: Patient ED PROVIDER(S): Justin Poole MD CHIEF COMPLAINT: Chest pain PLAN: Disposition: Admitted Outpatient prescription management: none Referral: None MEDICAL DECISION MAKING: Patient presented because of chest pain. Initial ECG was not on ischemic. Patient CBC and chemistries are unremarkable except for hyperglycemia. Patient was given insulin. Cardiac troponin is mildly elevated. Patient did receive aspirin. She had no change with nitro at home. She was given nitro and Nitropaste here no significant relief was obtained. She was given 2 dose of IV morphine and did feel better with this. Chest x-ray was unremarkable. CT of the chest was performed and was negative for PE. Repeat cardiac troponin was not significantly changed. Consultation was made with Dr. Albert Shahid, [facility] hospitalist service. Case discussed and diagnostics were reviewed. He did evaluate the patient in the ER for further management. Care/management discussed with: manager stars Level of care consideration(s): After review of the information above and other included data, I feel the patient requires escalation of care to admission Triage Nursing notes: reviewed and agree them. Vital Signs: reviewed and remarkable for no significant abnormalities Additional History obtained from: none Chronic Medical/Social Conditions affecting care: Diabetes Prior/ Outside/ External records reviewed: none Differential Diagnosis: Cardiac ischemia, aortic dissection, pulmonary embolism, pneumothorax, pneumonia, pericarditis, myocarditis, esophageal rupture, GERD, cholecystitis, pancreatitis, musculoskeletal, as well as other pathologies. Diagnostics, independently interpreted by me: ECG: none Cardiac Monitoring: Cardiac monitoring ordered by me: The patient was placed on continuous cardiac monitoring and observed. It revealed a normal sinus rhythm at 61 beats per minute without ectopy or evidence of dysrhythmia. Medical decision rules: none Imaging studies: Chest x-ray. Findings: A chest x-ray was performed and revealed no pneumothorax, effusion, infiltrate, pulmonary edema, free air under the diaphragm, or wide mediastinum. Impression: No acute disease. HPI: 78 year old Female arrives for evaluation of chest pain that started a few hours prior to arrival. Patient rated pain as a 6 out of 10. She did take her 's nitroglycerin with no change. No prior history of the same. Patient was resting when this occurred. Patient noted pain did right to the left shoulder. Pt denies LOC, headache, fevers, chills, diaphoresis, visual changes, neck pain, breathing difficulties, nausea, vomiting, abdominal pain, back pain, melena, hematochezia, urinary symptoms, numbness, weakness, lymphadenopathy, rash, or other complaints. PAST MEDICAL HISTORY: See Below, diabetes PAST SURGICAL HISTORY: See Below, SOCIAL HISTORY: See Below, HOME MEDICATIONS: See Below ALLERGIES: See Below VITALS: See Below PHYSICAL EXAMINATION: GENERAL: Awake, alert, mildly uncomfortable-appearing, in no distress HENT: Normocephalic, atraumatic. Oropharynx unremarkable. EYES: Normal conjunctiva. Sclera non-icteric. NECK: Inspection normal. Non-tender. Supple. No nuchal rigidity. FROM. No masses. RESPIRATORY: Clear to auscultation. No wheezes. No rales. Normal respiratory effort. CARDIAC: Normal rate. Normal rhythm. No murmurs. No rubs. Extremities warm and well perfused. Pulses equal. No JVD. GI: Soft, non-distended. No tenderness to palpation. No rebound or guarding. No masses. RECTAL: Deferred. MUSCULOSKELETAL: Atraumatic. Chest examination reveals no tenderness. The back is symmetrical on inspection without obvious abnormality. There is no CVA tenderness to palpation. No joint edema. LOWER EXTREMITIES: Calves are equal size bilaterally and non-tender. No edema. No discoloration. NEURO: Normal sensorium. No sensory or motor deficits noted. SKIN: No rash or jaundice noted. PROCEDURES: none CRITICAL CARE: none OBSERVATION NOTE: none Past Med/Surg History Problem List (Updated 04/10/24 @ 00:59 by Justin Poole MD) Elevated troponin (Acute) Chest pain (Acute) GERD (gastroesophageal reflux disease) DM (diabetes mellitus), type 2 Hypertension (Chronic) Asthma (Chronic) Medical History Bursitis of right hip Hamstring strain Surgical History Hx of tonsillectomy H/O: hysterectomy Family History Other Diabetes Heart disease Social History (Updated 04/09/24 @ 21:00 by Celia Prince PA-C) Smoking Status: Never smoker Hx Alcohol Use: No Hx Substance Use: No Preferred Language: Syriac Feels Safe at Home: Yes Allergies Allergies Allergy/AdvReac Type Severity Reaction Status Date / Time No Known Allergies Allergy Unknown Verified 04/09/24 19:39 Home Meds Home Medications Medication Instructions Recorded Confirmed albuterol sulfate 2.5 mg/3 mL 2.5 mg inhalation Q6H PRN Wheezing 04/09/24 04/09/24 (0.083 %) solution for nebulization azelastine 137 mcg (0.1 %) nasal 2 spray intranasal BID 04/09/24 04/09/24 spray aerosol budesonide-formoterol HFA 160 2 puff inhalation BID PRN 04/09/24 04/09/24 mcg-4.5 mcg/actuation aerosol NEEDED PER PT inhaler (Symbicort) calcium carbonate 1,000 mg PO DAILY 04/09/24 04/09/24 conjugated estrogens 0.3 mg tablet 0.3 mg PO DAILY 04/09/24 04/09/24 (Premarin) empagliflozin 25 mg tablet 25 mg PO QAM 04/09/24 04/09/24 (Jardiance) furosemide 20 mg tablet 36 mg PO DAILY PRN Fluid Retention 04/09/24 04/09/24 insulin detemir U-100 100 unit/mL 28 unit subcut HS 04/09/24 04/09/24 (3 mL) subcutaneous pen ipratropium bromide 21 mcg (0.03 2 spray intranasal QID 04/09/24 04/09/24 %) nasal spray ketoconazole 2 % topical cream 1 applic topical DIRECTED PRN 04/09/24 04/09/24 AFFECTED AREAS ON FACE lisinopril 5 mg tablet 5 mg PO DAILY 04/09/24 04/09/24 metformin 850 mg tablet 850 mg PO BID 04/09/24 04/09/24 metoprolol succinate 25 mg 25 mg PO DAILY 04/09/24 04/09/24 tablet,extended release 24 hr omeprazole 20 mg capsule,delayed 20 mg PO BID 04/09/24 04/09/24 release rosuvastatin 5 mg tablet 5 mg PO DAILY 04/09/24 04/09/24 sodium chloride 0.9 % for 3 ml inhalation QID PRN NEEDED 04/09/24 04/09/24 nebulization PER PT. Results & Data (ED) Vital Signs Vital Signs - 24 hr 04/09/24 17:46 04/09/24 19:12 04/09/24 19:12 Temperature 36.7 C Temperature Source Temporal Artery Scan Pulse Rate 84 72 Pulse Rate [Apical] Pulse Rate from SpO2 Sensor Respiratory Rate 16 Respiratory Effort / Characteristics Non-Labored Spontaneous Respiratory Depth Normal Respiratory Pattern Blood Pressure 165/82 H 168/78 H Blood Pressure [Right Arm] Blood Pressure Mean 109 109 Blood Pressure Mean [Right Arm] Pulse Oximetry 97 Oxygen Delivery Method Room Air Sepsis Recent Fever Within 48 Hours No Sepsis New/Unexplained Change in Mental Status N/A Sepsis Action Taken by Nursing No Action Required 04/09/24 19:15 04/09/24 19:15 04/09/24 19:17 Temperature Temperature Source Pulse Rate 75 Pulse Rate [Apical] 67 Pulse Rate from SpO2 Sensor Respiratory Rate 18 20 Respiratory Effort / Characteristics Non-Labored Spontaneous Respiratory Depth Normal Respiratory Pattern Regular Blood Pressure Blood Pressure [Right Arm] 168/78 H Blood Pressure Mean Blood Pressure Mean [Right Arm] 108 Pulse Oximetry 98 98 98 Oxygen Delivery Method Room Air Room Air Room Air Sepsis Recent Fever Within 48 Hours Sepsis New/Unexplained Change in Mental Status Sepsis Action Taken by Nursing 04/09/24 19:21 04/09/24 19:35 04/09/24 19:36 Temperature Temperature Source Pulse Rate 71 69 Pulse Rate [Apical] Pulse Rate from SpO2 Sensor 70 70 Respiratory Rate 16 17 Respiratory Effort / Characteristics Respiratory Depth Respiratory Pattern Blood Pressure 180/86 H Blood Pressure [Right Arm] Blood Pressure Mean 122 Blood Pressure Mean [Right Arm] Pulse Oximetry 97 97 Oxygen Delivery Method Sepsis Recent Fever Within 48 Hours Sepsis New/Unexplained Change in Mental Status Sepsis Action Taken by Nursing 04/09/24 19:51 04/09/24 20:24 04/09/24 21:00 Temperature Temperature Source Pulse Rate 77 74 Pulse Rate [Apical] 68 Pulse Rate from SpO2 Sensor 74 73 Respiratory Rate 19 22 20 Respiratory Effort / Characteristics Non-Labored Spontaneous Respiratory Depth Normal Respiratory Pattern Regular Blood Pressure 120/75 Blood Pressure [Right Arm] 126/64 Blood Pressure Mean 90 Blood Pressure Mean [Right Arm] 84 Pulse Oximetry 96 96 95 Oxygen Delivery Method Room Air Sepsis Recent Fever Within 48 Hours Sepsis New/Unexplained Change in Mental Status Sepsis Action Taken by Nursing 04/09/24 21:12 04/09/24 21:39 Temperature Temperature Source Pulse Rate 64 69 Pulse Rate [Apical] Pulse Rate from SpO2 Sensor 64 69 Respiratory Rate 15 23 Respiratory Effort / Characteristics Respiratory Depth Respiratory Pattern Blood Pressure Blood Pressure [Right Arm] Blood Pressure Mean Blood Pressure Mean [Right Arm] Pulse Oximetry 96 93 Oxygen Delivery Method Sepsis Recent Fever Within 48 Hours Sepsis New/Unexplained Change in Mental Status Sepsis Action Taken by Nursing Laboratory Data 04/09/24 17:58 04/09/24 17:58 Lab Results 04/09/24 04/09/24 04/09/24 Range/Units 17:58 19:29 19:41 WBC 6.84 (4.8-10.8) K/ul RBC 4.24 (4.20-5.40) M/uL Hgb 12.2 (12.0-16.0) g/dl Hct 37.1 (37.0-47.0) % MCV 87.5 (80.0-100.0) fL MCH 28.8 (25.0-34.0) pg MCHC 32.9 (32.0-36.0) g/dL RDW Std Deviation 43.1 (36.4-46.3) fL RDW Coeff of Levon 13.5 (11.5-14.5) % Plt Count 282 (130-400) K/uL MPV 9.7 (9.4-12.4) fL Immature Gran % (Auto) 0.3 % Neut % (Auto) 65.7 % Lymph % (Auto) 24.3 % [place] % (Auto) 5.7 % Eos % (Auto) 3.4 % Baso % (Auto) 0.6 % Neut # (Auto) 4.50 (1.40-6.50) K/uL Lymph # (Auto) 1.66 (1.20-3.40) K/uL [place] # (Auto) 0.39 (0.11-0.59) K/uL Eos # (Auto) 0.23 (0.00-0.50) K/uL Baso # (Auto) 0.04 (0.00-0.20) K/uL Immature Gran # (Auto) 0.02 (0.01-0.20) K/uL PT 9.4 (9.0-12.0) Seconds INR 0.9 (0.9-1.1) APTT 25 (21-31) Seconds PTT Ratio 0.9 Sodium 131 L (136-145) mmol/L Potassium 4.3 (3.5-5.1) mmol/L Chloride 97 L (98-107) mmol/L Carbon Dioxide 24 (21-32) mmol/L Anion Gap 10 (3-11) BUN 24 H (6-23) mg/dl Creatinine 0.94 (0.6-1.2) mg/dl Est Cr Clr Drug Dosing Not Reportable Est GFR ( Amer) 67.8 ml/min Est GFR (Non-Af Amer) 58.5 ml/min BUN/Creatinine Ratio 25.5 H (10-20) Glucose 478 H* (70-99(Fasting)) mg/dl POC Glucose 293 H (70-99) mg/dl Calcium 9.0 (8.6-10.3) mg/dl Magnesium 1.9 (1.7-2.4) mg/dl Total Bilirubin 0.2 (0.2-1.0) mg/dl AST 11 L (13-39) U/L ALT 8 (7-52) U/L Alkaline Phosphatase 66 (34-104) U/L Troponin I High Sens 38.3 H 37.5 H (0-14) pg/ml Total Protein 6.5 (6.0-8.3) gm/dl Albumin 3.9 (3.4-5.0) gm/dl Globulin 2.6 (2.5-4.0) gm/dl Albumin/Globulin Ratio 1.5 (0.9-2) Lipase 49 (11-82) U/L Administered Medications Sodium Chloride (Nss) 1,000 mls @ 80 mls/hr IV .[id number] ONE Stop: 04/10/24 09:27 Last Admin: 04/09/24 21:02 Dose: 80 mls/hr Documented By: RNEETTA Discontinued Medications Aspirin (Aspirin Chew 324 Mg) 324 mg PO NOW STA Stop: 04/09/24 17:48 Last Admin: 04/09/24 18:01 Dose: 324 mg Documented By: RADHA Insulin Glargine (Lantus Per Unit Charge) 20 units SQ NOW STA Stop: 04/09/24 21:42 Last Admin: 04/09/24 22:35 Dose: 20 units Documented By: DONALD Co-signed By: RENETTA Insulin Human Regular (Novolin-R Insulin Per Unit Charge) 5 units IV NOW STA Stop: 04/09/24 19:25 Last Admin: 04/09/24 19:36 Dose: 5 units Documented By: DONALD Co-signed By: CHARLY Ioversol (Optiray 320 125ml) 120 ml IV ONCE ONE Stop: 04/09/24 20:19 Last Admin: 04/09/24 20:18 Dose: 120 ml Documented By: MARY Lisinopril (Lisinopril 5 Mg Tab) 5 mg PO NOW ONE Stop: 04/09/24 19:58 Last Admin: 04/09/24 20:37 Dose: 5 mg Documented By: RENETTA Morphine Sulfate (Morphine Sulfate 4 Mg/Ml 1 Ml Carp\Vial) 4 mg IV Q15M PRN PRN Reason: Pain Stop: 04/23/24 19:49 Last Admin: 04/09/24 21:06 Dose: 4 mg Documented By: Admin: 04/09/24 20:37 Dose: 4 mg Documented By: RENETTA Nitroglycerin (Nitroglycerin 2% Ointment 30gm Tube) 0.5 inch EXT NOW STA Stop: 04/09/24 19:19 Last Admin: 04/09/24 19:35 Dose: 0.5 inch Documented By: DONALD Nitroglycerin (Nitroglycerin Sl 0.4 Mg/Tab Tab) 0.4 mg SL NOW STA Stop: 04/09/24 19:19 Last Admin: 04/09/24 19:35 Dose: 0.4 mg Documented By: DONALD Ondansetron HCl (Ondansetron Inj 2 Mg/Ml 2 Ml Vial) 4 mg IV NOW STA Stop: 04/09/24 19:51 Last Admin: 04/09/24 20:37 Dose: 4 mg Documented By: RENETTA Imaging Data Radiologist's Impression: Chest X-Ray 04/09/24 17:48 XR chest 1V portable CLINICAL HISTORY: Chest pain, nonspecific TECHNIQUE: Single frontal radiograph of the chest was obtained. Comparison: None available at the time of this dictation. FINDINGS: No lines and tubes are seen. The cardiomediastinal silhouette is normal. The lungs are clear. No evidence of pleural effusion or pneumothorax. IMPRESSION: No acute chest disease. ACT 112: Negative or not required by law. Electronically signed by: Vicente Almendarez M.D. 04/09/2024 7:45 PM Chest CTA 04/09/24 19:50 Exam(s): CTA CHEST IV Amt: 120ml optiray 320 EXAM: CT Angiography Chest With Intravenous Contrast CLINICAL HISTORY: Left chest pain, eval for PE. TECHNIQUE: Axial computed tomographic angiography images of the chest with intravenous contrast. CTDI is 17.22 mGy and DLP is 533.06 mGy-cm. Automated exposure control was utilized for the study. A dose lowering technique was utilized adhering to the principles of ALARA. 3D and MIP reconstructed images were created and reviewed. COMPARISON: Chest x-ray 04/09/2024. FINDINGS: Pulmonary arteries: No pulmonary embolism. Aorta: No thoracic aortic aneurysm or dissection. Lungs: No consolidation. Minimal peribronchial thickening. Pleural space: No pleural effusion. No pneumothorax. Heart: No cardiomegaly. No pericardial effusion. No evidence of RV dysfunction. Mediastinum: Small hiatal hernia. Bones/joints: No acute fracture. Degenerative changes of the spine. Soft tissues: Unremarkable. Lymph nodes: Unremarkable. No enlarged lymph nodes. IMPRESSION: No pulmonary embolism. Minimal peribronchial thickening. No associated pneumonia. Electronically signed by: Karlo Vaz M.D. 04/09/24 22:18 PM Discharge Plan Visit Data Chief Complaint: Chest Pain Stated Complaint: CHEST PAIN, LT ARM PAIN ED Provider: Justin Poole Discharge Problem: Chest pain, Elevated troponin Patient Disposition: Admitted As Inpatient Discharge Instructions Interventions: ED Discharge Assessment Last Done: 04/09/24 23:57
--- OUTSIDE RECORDS SUMMARY | 2024-04-10 06:00 | External Medical Summary | Summary of Care ---
Author Name Unknown Organization [facility] Address [address] [place] [address] Phone [phone] Care Team Providers Care Log Sawyer Name Role Phone Anders Patel MD Primary Care Provider [phone]- [phone] Reason for Visit * Reason Onset Date Comments Test Results 02/14/2024 Encounter Details Date Type Department Care Team (Late st Contact Info) Description 02/14/2024 Telephone Gastroenterology, [facility] [address] [place] [address] Maria Antonia Irby MD [address] [place] [address] Test Results Allergies No known active allergiesdocumented as of this encounter (statuses as of 02/15/2024) Medications Medication Sig Dispensed Refills Start Date End Date Status sodium chloride 0.9 % NEBU Use to dilute albuterol for use in nebulizer up to 4 times per day as needed - 50 vials of 3 mL 150 mL 5 11/14/2016 Active Blood Glucose Monitoring Suppl (ONETOUCH ULTRA SYSTEM) w/Device KIT Use as directed 4 times a day as needed (sugars). Use up to four times a day as directed 1 Kit 0 03/12/2018 Active Calcium 600 MG Tablet Take 2 Tablets by mouth in the morning. 0 Active metroNIDAZOLE (METROGEL-VAGINAL) 0.75 % vaginal gel 0 03/19/2019 Active Ketoconazole 2 % cream Apply to affected areas of face whenever needed 30 g 5 01/29/2020 Active OneTouch Ultra In Vitro Strip (Glucose Blood) USE TO CHECK BLOOD SUGARS UP TO 3 TIMES PER DAY. IDDM, DX E11.9 300 Strip 3 09/22/2021 Active Azelastine HCl 0.1 % Nasal SolutionIndication s:Rhinitis, nonallergic,Rhinor felipe INSTILL 2 SPRAYS INTO EACH NOSTRIL TWICE A DAY 90 mL 3 03/14/2022 Active busPIRone HCl 15 MG Oral Tablet (Buspar) TAKE 1 TABLET BY MOUTH TWICE A DAY 180 Tablet 3 09/12/2022 Active Additional Information Patient not taking.Reported on 01/10/2023 Metoprolol Succinate ER 25 MG Oral Tablet Extended Release 24 Hour (toPROL XL)Indications:HTN , goal below 140/90 TAKE 1 TABLET BY MOUTH EVERY DAY 90 Tablet 3 01/10/2023 Active Lisinopril 5 MG Oral Tablet (Prinivil)Indicati ons:HTN, goal below 140/90 TAKE 1 TABLET BY MOUTH EVERY DAY 90 Tablet 3 03/24/2023 Active Rosuvastatin Calcium 5 MG Oral Tablet (Crestor)Indicatio ns:Dyslipidemia, goal LDL below 100 TAKE 1 TABLET BY MOUTH EVERY DAY 90 Tablet 3 03/28/2023 Active Levemir FlexTouch 100 UNIT/ML Subcutaneous Solution Pen-injector (Insulin Detemir)Indication s:Type 2 diabetes mellitus with insulin therapy (HCC) INJECT 36 UNITS UNDER THE SKIN ONCE DAILY AT BEDTIME 45 mL 1 03/28/2023 Active Ipratropium [place] 0.03 % Nasal Solution (Atrovent)Indicati ons:Rhinitis, nonallergic,Rhinor felipe INSTILL 2 SPRAYS INTO EACH NOSTRIL FOUR TIMES A DAY 90 mL 1 04/10/2023 Active metFORMIN HCl 850 MG Oral Tablet (Glucophage) TAKE 1 TABLET BY MOUTH TWICE A DAY 180 Tablet 1 09/11/2023 Active Albuterol Sulfate (5 MG/ML) 0.5% Inhalation Nebulization Solution (Proventil)Indicat ions:COPD, severity to be determined ([facility]) 0.5 ml nebulized every 4-6 hr as needed. Diagnosis COPD J44.9 100 mL 5 09/26/2023 Active Additional Information Patient not taking.Reported on 12/01/2023 BD Pen Needle Mini U/F 31G X 5 MM (Insulin Pen Needle)Indications :Type 2 diabetes mellitus with hemoglobin A1c goal of less than 8.0% ([facility]) Use to inject insulin once daily 100 Each 2 10/09/2023 Active Full Circle Biochar Ultra 2 w/Device Kit Use to check blood sugar up to three times a day. 1 Kit 0 10/20/2023 Active Furosemide 20 MG Oral Tablet (Lasix) TAKE 1 TAB BY MOUTH DAILY NEEDED (SWELLING). FOR FLUID ACCUMULATION OR WEIGHT GAIN 90 Tablet 3 12/01/2023 Active Estrogens Conjugated 0.3 MG Oral Tablet (Premarin) Take 1 Tablet by mouth in the morning. 90 Tablet 0 12/01/2023 Active Empagliflozin 25 MG Oral Tablet (Jardiance) TAKE BY MOUTH 1 TABLET IN THE MORNING. 90 Tablet 3 12/01/2023 Active Albuterol Sulfate (2.5 MG/3ML) 0.083% Inhalation Nebulization Solution (Proventil)Indicat ions:Moderate persistent asthma without complication Inhale 1 Vial via nebulizer every 6 hours as needed for Wheezing. 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, with long-term current use of insulin 07/12/2022 Type 2 diabetes mellitus wit h diabetic neuropathy, with long-term current use of insulin 02/22/2022 Type 2 diabetes mellitus with insulin therapy Osteoporosis without current pathological fractu re 12/11/2018 Actinic keratosis 12/11/2018 History of adenomatous polyp of colon 01/11/2018 Type 2 diabetes mellitus wit h hemoglobin A1c goal of less than 8.0% 11/29/2013 Overview: ICD-10 update of inactive term Rhinitis, nonallergic 06/26/2013 Asthma, moderate persistent 04/15/2010 DYSLIPIDEMIA, GOAL LDL BELOW 100 10/07/2009 Overview: Per Lipid Taxonomy. Sensorineural hearing loss 10/03/2006 Overview: Dr. Griffith, L>R Esophageal reflux 11/02/2005 documented as of this encounter (statuses as of 02/15/2024) Resolved Problems Problem Noted Date Diagnosed Date Resolved Date Chronic kidney disease, stage 3a 11/01/2021 02/22/2022 Overview: Per CKD protocol Type 2 diabetes mellitus wit h hemoglobin A1c goal of less than 7.0% 08/20/2009 11/29/2013 Overview: Per Diabetes Taxonomy. ICD-10 update of inactive term Infective otitis externa 10/03/2006 Overview: Dr. Griffith Dysfunction of eustachian tube 10/03/2006 01/11/2018 Overview: Dr. Griffith Temporomandibular joint diso rders, unspecified 10/03/2006 01/11/2018 Overview: Dr. Griffith Chronic rhinitis 10/03/2006 01/11/2018 Overview: Dr. Griffith EXTRINSIC ASTHMA, UNSPEC 11/02/2005 ADVANCE DIRECTIVE INFORMATION 04/26/2005 01/11/2018 Overview: No, Advance Directive brochure given to patient. Type 2 diabetes mellitus wit h hemoglobin A1c goal of less than 7.0% 03/28/2005 08/20/2009 Overview: Per Diabetes Taxonomy. ICD-10 update of inactive term Dyslipidemia, goal to be determined 03/28/2005 10/07/2009 Overview: Per Lipid Taxonomy. BENIGN NEOPLASM LG BOWEL 08/03/2004 documented as of this encounter (statuses as of 02/15/2024) Immunizations Name Administration Dates Next Due COVID-19 mRNA, LNP-s, No Pre serve, 2-Dose Series (MyVR) 02/12/2021,01/22/2021 Hepatitis B, 20+ yrs 09/23/2013,04/23/2013,03/23 PPD 11/15/2006 Seasonal Influenza, Quadriva lent, No Preserve, IM 07/27/2016,08/18/2015 07/27/2017 Seasonal Influenza, Split, I IV3, With Preserve, Inj 06/24/2014,07/23/2013 TDAP (age 10 and older)(Boostrix) 03/19/2021 TDAP (age 11 and older)(Adacel) 03/25/2011 documented as of this encounter Social History Tobacco Use Types Packs/Day Years Used Date Smoking Tobacco: Never Passive Smoke Exposure: Never Smokeless Tobacco: Never Comments: smokes Alcohol Use Standard Drinks/Week Comments No 0 (1 standard drink = 0.6 oz pur e alcohol) PHQ-2 Answer Date Recorded PHQ Adult Total Score 0 10/26/2022 Hunger Vital Sign Answer Date Recorded Within the past 12 months, y ou worried that your food would run out before you got the money to buy more. Never true 10/26/19 23 Within the past 12 months, t he food you bought just didn't last and you didn't have money to get more. Never true 10/26/2022 Sex and Gender Information Value Date Recorded Sex Assigned at Not on file Gender Identity Not on file Sexual Orientation Straight 05/30/2019 7: 27 AM EDT Job Start Date Occupation Industry Not on file Not on file Not on file documented as of this encounter Miscellaneous Notes * Telephone Encounter - Kiah Bess RN - 02/15/2024 3:34 PM EDT This has been fully explained to the patient, who indicates understanding. * Telephone Encounter - Ly Gonzalez OSA - 02/15/2024 10:11 AM EDT Pt is returning phone call. Please call pt back. * Telephone Encounter - Cristine Woody RN - 02/14/2024 3:52 PM EDT No answer. LM requesting return call. * Telephone Encounter - Cristine Woody RN - 02/14/2024 3:51 PM EDT ----- Message from Maria Antonia Irby MD sent at 02/14/2024 2:13 PM EDT ----- Regarding: FW: Can you let pt know that blood work to check for autoimmune disease thatcause swallowing problems is normal? Most likely, this is from her diabetes ----- Message ----- From: Derek Bruno Automated Processing Sent: 02/14/2024 2:05 PM EDT To: Maria Antonia Irby MD documented in this encounter Plan of Treatment Upcoming Encounters Date Type Department Care Team (Late st Contact Info) Description 06/14/2024 8:40 AM EDT Office Visit [facility] [address] [place] [address] Anders Patel MD [address] [place] [address] Scheduled Procedures Name Priority Associated Diagnoses Date/Ti me COLONOSCOPY FLEXIBLE PROXIMA L DIAGNOSTIC Recall History of colon polyps Family history of colon cancer Health Maintenance Due Date Last Done Comments Pneumococcal Vaccine: 65+ Years (1 of 2 - PCV) 1951 Hepatitis C Screening 1964 Zoster Vaccines (1 of 2) 1996 *BISPHONATE OR OTHER ACCEPTABLE MEDICATION NEEDED FOR OSTEOPOROSIS (REFER TO SMARTSET #1146) 05/22/2022 COVID-19 Vaccine ( season) 2023 02/12/2021, 01/22/2021 Diabetic Eye Exam 06/29/2023 06/29/2022, , 02/12/2019, Additional history exists Depression Screening 10/26/2023 10/26/2022 HbA1c 06/18/2024 12/19/2023, 02/0 03/2024, 10/04/2023, Additional history exists Albumin/Creatinine Ratio 11/28/2024 024, 07/11/2023, 04/18/2022, Additional history exists Diabetic Foot Exam 12/01/2024 12/01/2023, 0 02/22/2022, 05/19/2021, Additional history exists B-12 12/19/2024 12/19/2023, 02/0 03/2024, 07/11/2023, Additional history exists GFR 02/04/2025 02/05/2024, 11/24, 11/28/2023, Additional history exists DXA Scan 04/18/2025 04/18/2023, 03/24, 01/19/2018, Additional history exists COLONOSCOPY-EVERY 5 YRS AGES 18-100 06/11/2025 06/11/2020, 06/11/2020, 06/04/2015, Additional history exists DTaP,Tdap,and Td Vaccines (3 - Td or Tdap) 03/19/2031 03/19/2021, 03/25/2011 VITAMIN D LEVEL ONCE IN A LIFETIME-USE SMARTSET# 03117 Completed 05/31/2011 Hepatitis B Completed 09/23/2013, 11/2012, 03/23/2013 GARDASIL-HPV IMMUNIZATION SERIES Aged Out No longer eligible based on patient's age to complete this topic MENINGOCOCCAL (MENACTRA/MENVEO) Aged Out No longer eligible based on patient's age to complete this topic documented as of this encounter Medical Devices Not on filedocumented as of this encounter Care Teams Log Sawyer Relationship Specialty Start Date End Date Anders Patel MD [address] [place] [address] PCP - General 01/08/02 documented as of this encounter
--- OUTSIDE RECORDS SUMMARY | 2024-04-10 06:00 | External Medical Summary | Summary of Care ---
Author Name Unknown Organization [facility] Address [address] [place] [address] Phone [phone] Care Team Providers Care Straight Slicing Machine Operator Name Role Phone Anders Patel MD Primary Care Provider [phone]- [phone] Reason for Visit * Reason Comments Outpatient Testing Encounter Details Date Type Department Care Team (Late st Contact Info) Description 02/13/2024 11:40 AM EDT Laboratory Laboratory, [facility] [address] [place] [address] [facility] [address] [place] [address] Esophageal dysmotility Allergies No known active allergiesdocumented as of this encounter (statuses as of 02/13/2024) Medications Medication Sig Dispensed Refills Start Date [...] BEDTIME 45 mL 1 03/28/2023 Active Ipratropium [place] 0.03 % Nasal Solution (Atrovent)Indicati ons:Rhinitis, nonallergic,Rhinor felipe INSTILL 2 SPRAYS INTO EACH NOSTRIL FOUR TIMES A DAY 90 mL 1 04/10/2023 Active metFORMIN HCl 850 MG Oral Tablet (Glucophage) TAKE 1 TABLET BY MOUTH TWICE A DAY 180 Tablet 1 09/11/2023 Active Albuterol Sulfate (5 MG/ML) 0.5% Inhalation Nebulization Solution (Proventil)Indicat ions:COPD, severity to be determined ([facility]) 0.5 ml nebulized every 4-6 hr as needed. Diagnosis COPD J44.9 100 mL 5 09/26/2023 Active Additional Information Patient not taking.Reported on 12/01/2023 BD Pen Needle Mini U/F 31G X 5 MM (Insulin Pen Needle)Indications :Type 2 diabetes mellitus with hemoglobin A1c goal of less than 8.0% ([facility]) Use to inject insulin once daily 100 Each 2 10/09/2023 Active Branded Realityuch Ultra 2 w/Device Kit Use to check [...] as of this encounter (statuses as of 02/13/2024) Active Problems Problem Noted Date Diagnosed Date Controlled type 2 diabetes [place] with both eyes affected by mild nonproliferative [...] as of this encounter (statuses as of 02/13/2024) Resolved Problems Problem Noted Date Diagnosed Date [...] as of this encounter (statuses as of 02/13/2024) Immunizations Name Administration Dates Next Due COVID-19 mRNA, LNP-s, No Pre serve, 2-Dose Series (Roamler) 02/12/2021,01/22/2021 Hepatitis B, 20+ yrs 09/23/2013,04/23/2013,03/23 PPD [...] on file documented as of this encounter Plan of Treatment Upcoming Encounters Date Type Department Care Team (Late st Contact Info) Description 06/14/2024 8:40 AM EDT Office Visit [facility] [address] [place] [address] Anders Patel MD [address] [facility] [place] [address] Pending Results Name Type Priority Associated Diagnoses Date /Time ANTINUCLEAR ANTIBODY (JF) EIA SCREEN WITH REFLEX AB QUANT Lab Routine Esophageal dysmotility 02/13/2024 11:37 AM EDT ANTINUCLEAR ANTIBODY (JF) SCREEN, MARII Lab Routine Esophageal dysmotility 02/13/2024 11:37 AM EDT Scheduled Procedures Name Priority Associated Diagnoses Date/Ti [...] Depression Screening 10/26/2023 10/26/2022 HbA1c 06/18/2024 12/19/2023, 0 03/2024, 10/04/2023, Additional history exists Albumin/Creatinine Ratio 11/28/2024 024, 07/11/2023, 04/18/2022, Additional history exists Diabetic Foot Exam 12/01/2024 12/01/2023, 0 02/22/2022, 05/19/2021, Additional history exists B-12 12/19/2024 12/19/2023, 0 03/2024, 07/11/2023, Additional history exists GFR 02/04/2025 02/05/2024, 2 04/2024, 11/28/2023, Additional history exists DXA Scan 04/18/2025 04/18/2023, 03/24, 01/19/2018, Additional history exists COLONOSCOPY-EVERY 5 YRS AGES 18-100 06/11/2025 06/11/2020, 06/11/2020, 06/04/2015, Additional history exists DTaP,Tdap,and Td Vaccines (3 - Td or Tdap) 03/19/2031 03/19/2021, 03/25/2011 VITAMIN D LEVEL ONCE IN A LIFETIME-USE SMARTSET# [id number] Completed 05/31/2011 Hepatitis B Completed 09/23/2013, 07/0 11/2012, 03/23/2013 GARDASIL-HPV IMMUNIZATION SERIES Aged Out No longer eligible based on patient's age to complete this topic MENINGOCOCCAL (MENACTRA/MENVEO) Aged Out No longer eligible based on patient's age to complete this topic documented as of this encounter Medical Devices Not on filedocumented as of this encounter Visit Diagnoses Diagnosis Esophageal dysmotility Dyskinesia of esophagus documented in this encounter Care Teams Straight Slicing Machine Operator Relationship Specialty Start Date End Date Anders Patel MD [address] [place] [address] PCP - General 01/08/02 documented as of this encounter
--- OUTSIDE RECORDS SUMMARY | 2024-04-10 06:00 | External Medical Summary | Summary of Care ---
Author Name Unknown Organization [facility] Address [address] [place] [address] Phone [phone] Care Team Providers Care Remote Computer Terminal Operator Name Role Phone Anders Patel MD Primary Care Provider +1- [phone] Reason for Visit * Reason Comments eRx-Medication Refill Encounter Details Date Type Department Care Team (Late st Contact Info) Description 03/28/2024 Refill [facility] [address] [place] [address] Anders Patel MD [address] [place], [place] [id number] Dyslipidemia, goal LDL below 100; HTN, goal below 140/90 Allergies No known active allergiesdocumented as of this encounter (statuses as of 03/29/2024) Medications Medication Sig Dispensed Refills Start Date [...] times a day as directed 1 Kit 03/12/2018 Active Calcium 600 MG Tablet Take 2 Tablets by mouth in the morning. Active metroNIDAZOLE (METROGEL-VAGINAL) 0.75 % vaginal gel [...] A DAY 90 mL 3 03/14/2022 Active Levemir FlexTouch 100 UNIT/ML Subcutaneous Solution Pen-injector (Insulin Detemir)Indication s:Type 2 diabetes mellitus with insulin therapy (HCC) INJECT 36 UNITS UNDER THE SKIN ONCE DAILY AT BEDTIME 45 mL 1 03/28/2023 Active Ipratropium [place] 0.03 % Nasal Solution (Atrovent)Indicati ons:Rhinitis, nonallergic,Rhinor felipe INSTILL 2 SPRAYS INTO EACH NOSTRIL FOUR TIMES A DAY 90 mL 1 04/10/2023 Active metFORMIN HCl 850 MG Oral Tablet (Glucophage) TAKE 1 TABLET BY MOUTH TWICE A DAY 180 Tablet 1 09/11/2023 Active Albuterol Sulfate (5 MG/ML) 0.5% Inhalation Nebulization Solution (Proventil)Indicat ions:COPD, severity to be determined ([facility]) 0.5 ml nebulized every 4-6 hr as needed. Diagnosis COPD J44.9 100 mL 5 09/26/2023 Active Additional Information Patient not taking.Reported on 12/01/2023 BD Pen Needle Mini U/F 31G X 5 MM (Insulin Pen Needle)Indications :Type 2 diabetes mellitus with hemoglobin A1c goal of less than 8.0% (HCC) Use to inject insulin once daily 100 Each 2 10/09/2023 Active n1health Ultra 2 w/Device Kit Use to check blood sugar up to three times a day. 1 Kit 10/20/2023 Active Furosemide 20 MG Oral Tablet (Lasix) TAKE 1 TAB BY MOUTH DAILY NEEDED (SWELLING). FOR FLUID ACCUMULATION OR WEIGHT GAIN 90 Tablet 3 12/01/2023 Active Estrogens Conjugated 0.3 MG Oral Tablet (Premarin) Take 1 Tablet by mouth in the morning. 90 Tablet 12/01/2023 Active Empagliflozin 25 MG Oral Tablet [...] A DAY 180 Capsule 3 01/27/2024 Active Metoprolol Succinate ER 25 MG Oral Tablet Extended Release 24 Hour (toPROL XL)Indications:HTN , goal below 140/90 TAKE 1 TABLET BY MOUTH EVERY DAY 90 Tablet 03/11/2024 Active Lisinopril 5 MG Oral Tablet (Prinivil)Indicati ons:HTN, goal below 140/90 TAKE 1 TABLET BY MOUTH EVERY DAY 90 Tablet 03/11/2024 Active Rosuvastatin Calcium 5 MG Oral Tablet (Crestor)Indicatio ns:Dyslipidemia, goal LDL below 100 TAKE 1 TABLET BY MOUTH EVERY DAY 90 Tablet 03/11/2024 Active documented as of this encounter (statuses as of 03/29/2024) Active Problems Problem Noted Date Diagnosed Date Controlled type 2 diabetes m [place] with both eyes affected by mild nonproliferative [...] as of this encounter (statuses as of 03/29/2024) Resolved Problems Problem Noted Date Diagnosed Date [...] as of this encounter (statuses as of 03/29/2024) Immunizations Name Administration Dates Next Due COVID-19 mRNA, LNP-s, No Pre serve, 2-Dose Series (Augmenix) 02/12/2021,01/22/2021 Hepatitis B, 20+ yrs 09/23/2013,04/23/2013,03/23 PPD 11/15/2006 Seasonal Influenza, Quadriva lent, No Preserve, IM 07/27/2016,08/18/2015 07/27/2017 Seasonal Influenza, Split, I IV3, With Preserve, Inj 06/24/2014,07/23/2013 TDAP (age 10 and older)(Boostrix) 03/19/2021 TDAP, Age 7 and older, IM (Adacel) 03/25/2011 documented as of this encounter Social [...] encounter Miscellaneous Notes * Telephone Encounter - Starr Hua, [facility] - 03/29/2024 9:30 AM EDTRefused Prescriptions: Disp Refills Rosuvastatin Calcium 5 MG Oral Tablet (Cre*90 Tab*0 Sig: TAKE 1 TABLET BY MOUTH EVERY DAYRefused By: FRANCOISE HUAeasjulian for Refusal: Too soon metFORMIN HCl 850 MGOral Tablet (Glucopha*180 Ta*1 Sig: TAKE 1 TABLET BY MOUTH TWICE A DAYRefused By: FRANCOISE HUAeason for Refusal: Too soon Metoprolol Succinate ER 25 MG Oral Tablet *90 Tab*0 Sig: TAKE 1 TABLET BY MOUTH EVERY DAYRefused By: FRANCOISE HUAeason for Refusal: Too soon Lisinopril 5 MG Oral Tablet (Prinivil) 90 Tab*0 Sig: TAKE 1 TABLET BY MOUTH EVERY DAYRefused By: FRANCOISE HUAeason for Refusal: Too s oon documented in this encounter Plan of Treatment Upcoming Encounters Date Type Department Care Team (Late st Contact Info) Description 06/14/2024 8:40 AM EDT Office Visit [facility] [address] [place] [address] Anders Patel MD [address] [place] [address] Scheduled Procedures Name Priority Associated [...] 04/18/2025 04/18/2023, 03/24, 01/19/2018, Additional history exists Colonoscopy 06/11/2025 06/11/2020, 05/24, 06/04/2015, Additional history exists DTaP,Tdap,and Td Vaccines (3 - Td or Tdap) 03/19/2031 03/19/2021, 03/25/2011 VITAMIN D LEVEL ONCE IN A LIFETIME-USE SMARTSET# [id number] Completed 05/31/2011 Hepatitis B Completed 09/23/2013, 11/2012, 03/23/2013 RETIRED - COLONOSCOPY-EVERY 5 YRS AGES 18-100 Discontinued 06/11/2020, 06/11/2020, 06/04/2015, Additional history exists GARDASIL-HPV IMMUNIZATION SERIES Aged Out No longer eligible based on patient's age to complete this topic MENINGOCOCCAL (MENACTRA/MENVEO) Aged Out No longer eligible based on patient's age to complete this topic documented as of this encounter Medical Devices Not on filedocumented as of this encounter Visit Diagnoses Diagnosis Dyslipidemia, goal LDL below 100 Other and unspecified hyperlipidemia HTN, goal below 140/90 Unspecified essential hypertension documented in this encounter Care Teams Remote Computer Terminal Operator Relationship Specialty Start Date End Date Anders Patel MD [address] [place] [address] PCP - General 01/08/02 documented as of this encounter
--- OUTSIDE RECORDS SUMMARY | 2024-04-10 06:00 | External Medical Summary | Summary of Care ---
Author Name Unknown Organization [facility] Address [address] [place] [address] Phone [phone] Care Team Providers Care Reel Cart Operator Name Role Phone Anders Farah MD Primary Care Provider [phone] Reason for Visit * Reason Comments eRx-Medication Refill Encounter Details Date Type Department Care Team (Late st Contact Info) Description 04/06/2024 Refill [facility] [address] [place] [address] Anders Farah MD [address], [place] [id number] Allergies No known active allergiesdocumented as of this encounter (statuses as of 04/06/2024) Medications Medication Sig Dispensed Refills Start Date End Date Status sodium chloride 0.9 % NEBU Use to dilute albuterol for use in nebulizer up to 4 times per day as needed - 50 vials of 3 mL 150 mL 5 7 Active Blood Glucose Monitoring Suppl (ONETOUCH ULTRA SYSTEM) w/Device KIT Use as directed 4 times a day as needed (sugars). Use up to four times a day as directed 1 Kit 8 Active Calcium 600 MG Tablet Take 2 Tablets by mouth in the morning. Active metroNIDAZOLE (METROGEL-VAGINAL ) 0.75 % vaginal gel 0 9 Active Ketoconazole 2 % cream Apply to affected areas of face whenever needed 30 g 5 0 Active OneTouch Ultra In Vitro Strip (Glucose Blood) USE TO CHECK BLOOD SUGARS UP TO 3 TIMES PER DAY. IDDM, DX E11.9 300 Strip 3 1 Active Azelastine HCl 0.1 % Nasal SolutionIndicatio ns:Rhinitis, nonallergic,Rhino rrhea INSTILL 2 SPRAYS INTO EACH NOSTRIL TWICE A DAY 90 mL 3 2 Active Levemir FlexTouch 100 UNIT/ML Subcutaneous Solution Pen-injector (Insulin Detemir)Indicatio ns:Type 2 diabetes mellitus with insulin therapy (HCC) INJECT 36 UNITS UNDER THE SKIN ONCE DAILY AT BEDTIME 45 mL 1 3 Active Ipratropium [place] 0.03 % Nasal Solution (Atrovent)Indicat ions:Rhinitis, nonallergic,Rhino rrhea INSTILL 2 SPRAYS INTO EACH NOSTRIL FOUR TIMES A DAY 90 mL 1 3 Active metFORMIN HCl 850 MG Oral Tablet (Glucophage) TAKE 1 TABLET BY MOUTH TWICE A DAY 180 Tablet 1 3 Active Albuterol Sulfate (5 MG/ML) 0.5% Inhalation Nebulization Solution (Proventil)Indica tions:COPD, severity to be determined ([facility]) 0.5 ml nebulized every 4-6 hr as needed. Diagnosis COPD J44.9 100 mL 5 3 Active Additional Information Patient not taking.Reported on 12/01/2023 BD Pen Needle Mini U/F 31G X 5 MM (Insulin Pen Needle)Indication s:Type 2 diabetes mellitus with hemoglobin A1c goal of less than 8.0% ([facility]) Use to inject insulin once daily 100 Each 2 3 Active SypherlinkTouch Ultra 2 w/Device Kit Use to check blood sugar up to three times a day. 1 Kit 3 Active Furosemide 20 MG Oral Tablet (Lasix) TAKE 1 TAB BY MOUTH DAILY NEEDED (SWELLING). FOR FLUID ACCUMULATION OR WEIGHT GAIN 90 Tablet 3 4 Active Empagliflozin 25 MG Oral Tablet (Jardiance) TAKE BY MOUTH 1 TABLET IN THE MORNING. 90 Tablet 3 4 Active Albuterol Sulfate (2.5 MG/3ML) 0.083% Inhalation Nebulization Solution (Proventil)Indica tions:Moderate persistent asthma without complication Inhale 1 Vial via nebulizer every 6 hours as needed for Wheezing. 360 mL 1 4 Active Budesonide-Formot anay Fumarate 160-4.5 MCG/ACT Inhalation Aerosol (Symbicort)Indica tions:Asthma, moderate persistent TAKE 2 PUFFS BY MOUTH TWICE A DAY 30.6 g 3 4 Active Omeprazole 20 MG Oral Capsule Delayed Release (PriLOSEC) TAKE 1 CAPSULE BY MOUTH TWICE A DAY 180 Capsule 3 4 Active Metoprolol Succinate ER 25 MG Oral Tablet Extended Release 24 Hour (toPROL XL)Indications:HT N, goal below 140/90 TAKE 1 TABLET BY MOUTH EVERY DAY 90 Tablet 4 Active Lisinopril 5 MG Oral Tablet (Prinivil)Indicat ions:HTN, goal below 140/90 TAKE 1 TABLET BY MOUTH EVERY DAY 90 Tablet 4 Active Rosuvastatin Calcium 5 MG Oral Tablet (Crestor)Indicati ons:Dyslipidemia, goal LDL below 100 TAKE 1 TABLET BY MOUTH EVERY DAY 90 Tablet 4 Active Premarin 0.3 MG Oral Tablet (Estrogens Conjugated) TAKE 1 TABLET BY MOUTH EVERY DAY IN THE MORNING 90 Tablet 1 4 Active Estrogens Conjugated 0.3 MG Oral Tablet (Premarin) Take 1 Tablet by mouth in the morning. 90 Tablet 4 04/06/20 24 Discontinued documented as of this encounter (statuses as of 04/06/2024) Active Problems Problem Noted Date Diagnosed Date [...] as of this encounter (statuses as of 04/06/2024) Resolved Problems Problem Noted Date Diagnosed Date [...] as of this encounter (statuses as of 04/06/2024) Immunizations Name Administration Dates Next Due COVID-19 mRNA, LNP-s, No Pre serve, 2-Dose Series ([employer]) 02/12/2021,01/22/2021 Hepatitis B, 20+ yrs 09/23/2013,04/23/2013,03/23 PPD [...] encounter Miscellaneous Notes * Telephone Encounter - Yulissa Contreras RPh - 04/06/2024 10:13 PM EDTSigned Prescriptions: Disp Refills Premarin 0.3 MG Oral Tablet (Estrogens Con*90 Tab*1 Sig: TAKE 1TABLET BY MOUTH EVERY DAY IN THE MORNINGAuthorizing Provider: ANDERS FARAH User: YULISSA CONTRERAS documented in this encounter Plan of Treatment Upcoming Encounters Date Type Department Care Team (Late st Contact Info) Description 06/14/2024 8:40 AM EDT Office Visit [facility] [address] [place] [facility] [place] [address] Anders Far[facility] [address] [facility] [place] [address] Scheduled Procedures Name Priority Associated Diagnoses [...] D LEVEL ONCE IN A LIFETIME-USE SMARTSET# 13367 Completed 05/31/2011 Hepatitis B Completed 09/23/2013, 11/2012, [...] filedocumented as of this encounter Care Teams Reel Cart Operator Relationship Specialty Start Date End Date Anders Farah MD [address] [place] [address] PCP - General 01/08/02 documented as of this encounter
--- OUTSIDE RECORDS SUMMARY | 2024-04-10 06:00 | External Medical Summary | Summary of Care ---
Author Name Unknown Organization [facility] Address [address] [place] [address] Phone [phone] Care Team Providers Care Helicopter Dispatcher Name Role Phone Anders Patel MD Primary Care Provider [phone]- [phone] Reason for Visit * Reason Onset Date Comments Test Results 02/08/2024 Encounter Details Date Type Department Care Team (Late st Contact Info) Description 02/08/2024 Telephone [facility] [address] [place] [address] Breanna Heck MD [address] [place] [address] Test Results Allergies No known active allergiesdocumented as of this encounter (statuses as of 02/08/2024) Medications Medication Sig Dispensed Refills Start Date [...] BEDTIME 45 mL 1 03/28/2023 Active Ipratropium [place] 0.03 % Nasal Solution (Atrovent)Indicati ons:Rhinitis, nonallergic,Rhinor felipe INSTILL 2 SPRAYS INTO EACH NOSTRIL FOUR TIMES A DAY 90 mL 1 04/10/2023 Active metFORMIN HCl 850 MG Oral Tablet (Glucophage) TAKE 1 TABLET BY MOUTH TWICE A DAY 180 Tablet 1 09/11/2023 Active Albuterol Sulfate (5 MG/ML) 0.5% Inhalation Nebulization Solution (Proventil)Indicat ions:COPD, severity to be determined ([facility]) 0.5 ml nebulized every 4-6 hr as needed. Diagnosis COPD J44.9 100 mL 5 09/26/2023 Active Additional Information Patient not taking.Reported on 12/01/2023 BD Pen Needle Mini U/F 31G X 5 MM (Insulin Pen Needle)Indications :Type 2 diabetes mellitus with hemoglobin A1c goal of less than 8.0% ([facility]) Use to inject insulin once daily 100 Each 2 10/09/2023 Active Measureful 2 w/Device Kit Use to check blood [...] as of this encounter (statuses as of 02/08/2024) Active Problems Problem Noted Date Diagnosed Date [...] as of this encounter (statuses as of 02/08/2024) Resolved Problems Problem Noted Date Diagnosed Date [...] as of this encounter (statuses as of 02/08/2024) Immunizations Name Administration Dates Next Due COVID-19 mRNA, LNP-s, No Pre serve, 2-Dose Series ([employer]) 02/12/2021,01/22/2021 Hepatitis B, 20+ yrs 09/23/2013,04/23/2013,03/23 PPD [...] encounter Miscellaneous Notes * Telephone Encounter - [place] Garrett MED ASSIST - 02/08/2024 12:56 PM EDT ----- Message from Breanna Heck MD sent at 02/08/2024 12:37 PM EDT ----- Please let patient know her Duplex was normal. Still waiting on brain MRI. documented in this encounter Plan of Treatment Upcoming Encounters Date Type Department Care Team (Late st Contact Info) Description 02/13/2024 10:20 AM EDT Office Visit [facility], [address] [place] [address] Maria Antonia Irby MD [address] [place] [address] 06/14/2024 8:40 AM EDT Office Visit [facility] [address] [facility] [place] [address] Anders Patel MD [address] [place] [address] Scheduled Procedures Name Priority Associated [...] Depression Screening 10/26/2023 10/26/2022 HbA1c 06/18/2024 12/19/2023, 020 03/2024, 10/04/2023, Additional history exists Albumin/Creatinine Ratio [...] D LEVEL ONCE IN A LIFETIME-USE SMARTSET# [id number] Completed 05/31/2011 Hepatitis B Completed 09/23/2013, 11/2012, 03/23/2013 GARDASIL-HPV IMMUNIZATION SERIES Aged Out No longer eligible based on patient's age to complete this topic MENINGOCOCCAL (MENACTRA/MENVEO) Aged Out No longer eligible based on patient's age to complete this topic documented as of this encounter Medical Devices Not on filedocumented as of this encounter Care Teams Helicopter Dispatcher Relationship Specialty Start Date End Date Anders Patel MD [address] [place] [address] PCP - General 01/08/02 documented as of this encounter
--- OUTSIDE RECORDS SUMMARY | 2024-04-10 06:00 | External Medical Summary | Summary of Care ---
Author Name Unknown Organization [facility] Address [address] [place] [address] Phone [phone] Care Team Providers Care Aquatic Habitat Biologist Name Role Phone Jodie Farah MD Primary Care Provider +1- [phone] Reason for Visit * Reason Comments NEW PATIENT Dysphagia * Evaluate & Treat - Unlimited Visits (Within 10 days (routine)) - Pending Review Specialty Diagnoses / Procedures Referred By Katharina wang Referred To Contact Gastroenterology Diagnoses Chronic diarrhea Jodie Farah MD [address] [place] [address] Referral ID Status Reason Start Date Expiration Date Visits Requested Visits Authorized [id number] Pending Review Specialty Services Required [phone] Encounter Details Date Type Department Care Team (Late st Contact Info) Description 02/13/2024 10:20 AM EDT Office Visit Gastroenterology, [facility] [address] [facility] [place] [address] Maria Antonia Irby MD [address] [facility] [place] [address] Esophageal dysmotility* Allergies No known active allergiesdocumented as of this encounter (statuses as of 02/13/2024) Medications Medication Sig Dispensed Refills Start Date End Date Status sodium chloride 0.9 % NEBU Use to dilute albuterol for use in nebulizer up to 4 times per day as needed - 50 vials of 3 mL 150 mL 5 11/14/2016 Active Blood Glucose Monitoring Suppl (JamOrigin ULTRA SYSTEM) w/Device KIT Use as directed [...] whenever needed 30 g 5 01/29/2020 Active PayTangouch Ultra In Vitro Strip (Glucose Blood) USE [...] BEDTIME 45 mL 1 03/28/2023 Active Ipratropium [place] 0.03 % Nasal Solution (Atrovent)Indicati ons:Rhinitis, nonallergic,Rhinor felipe INSTILL 2 SPRAYS INTO EACH NOSTRIL FOUR TIMES A DAY 90 mL 1 04/10/2023 Active metFORMIN HCl 850 MG Oral Tablet (Glucophage) TAKE 1 TABLET BY MOUTH TWICE A DAY 180 Tablet 1 09/11/2023 Active Albuterol Sulfate (5 MG/ML) 0.5% Inhalation Nebulization Solution (Proventil)Indicat ions:COPD, severity to be determined ([facility]) 0.5 ml nebulized every 4-6 hr as needed. 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 Never true 10/26/19 Within the past 12 months, t he [...] on file documented as of this encounter Last Filed Vital Signs Vital Sign Reading Time Taken Comments Blood Pressure 122/62 02/13/2024 10:31 AM EDT Pulse 79 02/13/2024 10:31 AM EDT Temperature 36.7 C (98.1 F) 02/13/2024 10:31 AM E DT Respiratory Rate - - Oxygen Saturation 96% 02/13/2024 10:31 AM EDT Inhaled Oxygen Concentration - - Weight 58.6 kg (129 lb 1.6 oz) 02/13/2024 10:31 AM EDT Height 154.9 cm (5' 1") 02/13/2024 10:31 AM EDT Body Mass Index 24.39 02/13/2024 10:31 AM EDT documented in this encounter Progress Notes * Maria Antonia Irby MD - 02/13/2024 10:54 AM EDT Consult requested by Ref: JODIE FARAH[[id number]] [address] [place] [address] (office) [phone] (fax) HPI: 78 year old female seen for dysphagia. Long h/o dysphagia -- at least 6 years. Initial endoscpy for this in 2016. Describes dysphagia to solids localized to chest, occurs daily. She reports waiting a few seconds Takes about 30 -45 mins to eat dinner. No GERD, no heartburn. On Omerpazole twice daily " for a long time." Has chronic cough - she wakes up every night with cough, also daytime stacy cough -- attributes thisto asthma. She denies nocturnal regurgitation or feeling of aspiration when she wakes at night withcough. + losing weight -- "I don't eat as much". In Epic, weight maybe has declined 3-5 lbs in the past year. No narcs. Denies Raynaud's. Has poorly controlled DM - A1c 9-10, frequently above 300. Also has longstanding diarrhea - Bm's twice daily, BM's liquid/yellow "looks like urine." No blood.+ no urgency. No abd cramping. On metformin, pt possibly thinks this may be related. Symptoms do notbother her. W/u has included EGD - LES thought to be snug, tortuous esophagus, empiric dilation to 18 that did not improve symptoms ENdoflip - Diminished RACs consistent with IEM, EGJ DI at 50 mm balloon distention was 1.9 but 4.3 at 60. Esophagram -Contrast In esophagus at 1 mins, cleared by 3 mins, no dilation. ALLERGIES: Review of patient's allergies indicates: No Known Allergies Past Medical History: Diagnosis Date Asthma, allergic 11/02/2005 Chronic rhinitis 10/03/06 Dr. Griffith DM type 2, goal A1c below 7 1990x 20 years of hx DM type 2, goal A1C below 8.0 11/29/2013 Dysfunction of eustachian tube 10/03/06 Dr. Griffith Dyslipidemia, goal to be determined 03/28/2005 Esophageal reflux 11/02/2005 Infective otitis externa 10/03/06 Dr. Griffith Sensorineural hearing loss 10/03/06 Dr. Griffith, L>R Temporomandibular joint disorders, unspecified 10/03/06 Dr. Griffith Torn rotator cuff bilateral shoulder surgery Past Surgical History: Procedure Laterality Date COLONOSCOPY, DIAGNOSTIC (RECTUM) 06/04/2015 normal, repeat 5 yrs/COLONOSCOPY FLEXIBLE PROXIMAL DIAGNOSTIC performed by Nicola Marinelli MD at ENDOSCOPY [facility] COLONOSCOPY, DIAGNOSTIC (RECTUM) 06/11/2020 adenomatous polyp, diverticulosis, repeat 5 yrs / COLONOSCOPY FLEXIBLE PROXIMAL DIAGNOSTIC performed by Maria Antonia Irby MD at ENDOSCOPY [facility] EGD, FLEXIBLE, DIAGNOSTIC 02/25/2011 UPPER GI ENDOSCOPY DIAGNOSTIC [place] THU QUINN [place] [facility] [place], FLEXIBLE, DIAGNOSTIC 05/02/2011 UPPER GI ENDOSCOPY DIAGNOSTIC performed [place] THU QUINN [place] [facility] [place]GD, FLEXIBLE, DIAGNOSTIC 06/04/2015 normal/ESOPHAGOGASTRODUODENOSCOPY (EGD), FLEXIBLE, TRANSORAL, DIAGNOSTIC performed by Nicola Marinelli MD at ENDOSCOPY [facility] EGD, FLEXIBLE, DIAGNOSTIC 09/13/2016 erosive esophagitis, normal bx/ESOPHAGOGASTRODUODENOSCOPY (EGD), FLEXIBLE, TRANSORAL, DIAGNOSTIC performed by Maria Antonia Irby MD at ENDOSCOPY [facility] EGD, FLEXIBLE, DIAGNOSTIC 06/16/2021 Antral gastritis / biopsies normal / ESOPHAGOGASTRODUODENOSCOPY (EGD), FLEXIBLE, TRANSORAL, DIAGNOSTIC performed by Maria Antonia Irby MD at ENDOSCOPY [facility] EGD, FLEXIBLE, DIAGNOSTIC 12/04/2023 retained secretions esophagus, mildly tortuous/biopsies normal/ESOPHAGOGASTRODUODENOSCOPY (EGD), FLEXIBLE, TRANSORAL, DIAGNOSTIC performed by Maria Antonia Irby MD at ENDOSCOPY [facility] EGD, FLEXIBLE, DIAGNOSTIC N/A 01/23/2024 ESOPHAGOGASTRODUODENOSCOPY (EGD), FLEXIBLE, TRANSORAL, DIAGNOSTIC performed by Ryan Parisi MD [place] [facility] [place] REMOVE TONSILS & ADENOIDS, AGE 12+ age 17 Tonsillectomy/Adenoids,13+ Y/O SHOULDER ARTHROSCOPY/SURGERY both shoulders TOTAL ABD HYSTERECTOMY W/WO REMOVAL OF TUBE(S) [facility] Family History Problem Relation Age of Onset Cancer Mother 77 colon Asthma Mother 50 Diabetes Mother 50 Heart Disorder Mother Cancer Father 54 spinal tumor/cancer Diabetes Father Neurological Disorder Father GBS Eye Problems Father Diabetic retinopathy Heart Disorder Grandmother (Maternal) enlarged heart Heart Disorder Grandfather (Maternal) MD Cancer Grandmother (Paternal) cancer, smoker Arthritis None Cancer Aunt (Unspecified) stomach, age 71 Cancer Uncle (Unspecified) neck cancer, age 60/liver (no alcohol) Glaucoma Sister Social History Socioeconomic History Marital status: Spouse name: Number of children: 1 Occupational History Occupation: NURSE Employer: [employer] Tobacco Use Smoking status: Never Passive exposure: Never Smokeless tobacco: Never Tobacco comments: smokes Vaping Use Vaping Use: Never used Substance and Sexual Activity Alcohol use: No Drug use: No Sexual activity: Yes Partners: Male Comment: Other Topics Concern Seat Belt Yes Social History Narrative [employer] [place] INFORMATION ENVIRONMENTAL HISTORY: Type of Home: One Story Type of Heating System: Oil and Hot water: baseboard Air Conditioning: Yes Living room Basement: Unfinished, Dampness and No evidence mold, mildew Home have cockroaches: No Irritants in the home: None Patient's bedroom location: Floor: first Type of glenny: Carpeting Beds: Number: 1 Type of beds: Mattress and Box spring Pillows: Number: 1 Type of pillows: Foam Bedroom contains: Stuffed animals and Plants Pets: 3 dog(s) [place] farm: No Home health aide; works out of different patient's homes, unpredictable environments Entered by: Lupillo Katz MD 06/26/2013 Social Determinants of Health Food Insecurity: No Food Insecurity (10/26/2022) Hunger Vital Sign Worried About Running Out of Food in the Last Year: Never true Ran Out of Food in the Last Year: Never true Current Outpatient Medications Medication Sig Dispense Refill sodium chloride 0.9 % NEBU Use to dilute albuterol for use in nebulizer up to 4 times per day as needed - 50 vials of 3 mL 150 mL 5 Blood Glucose Monitoring Suppl ([employer] ULTRA SYSTEM) w/Device KIT Use as directed 4 times a day as needed (sugars). Use up to four times a day as directed 1 Kit 0 Calcium 600 MG Tablet Take 2 Tablets by mouth in the morning. metroNIDAZOLE (METROGEL-VAGINAL) 0.75 % vaginal gel 0 Ketoconazole 2 % cream Apply to affected areas of face whenever needed 30 g 5 PayTangouch Ultra In Vitro Strip (Glucose Blood) USE TO CHECK BLOOD SUGARS UP TO 3 TIMES PER DAY. IDDM, DX E11.9 300 Strip 3 Azelastine HCl 0.1 % Nasal Solution INSTILL 2 SPRAYS INTO EACH NOSTRIL TWICE A DAY 90 mL 3 Metoprolol Succinate ER 25 MG Oral Tablet Extended Release 24 Hour (toPROL XL) TAKE 1 TABLET BY MOUTH EVERY DAY 90 Tablet 3 Lisinopril 5 MG Oral Tablet (Prinivil) TAKE 1 TABLET BY MOUTH EVERY DAY 90 Tablet 3 Rosuvastatin Calcium 5 MG Oral Tablet (Crestor) TAKE 1 TABLET BY MOUTH EVERY DAY 90 Tablet 3 Levemir FlexTouch 100 UNIT/ML Subcutaneous Solution Pen-injector (Insulin Detemir) INJECT 36 UNITS UNDER THE SKIN ONCE DAILY AT BEDTIME 45 mL 1 Ipratropium [place] 0.03 % Nasal Solution (Atrovent) INSTILL 2 SPRAYS INTO EACH NOSTRIL FOUR TIMES A DAY 90 mL 1 metFORMIN HCl 850 MG Oral Tablet (Glucophage) TAKE 1 TABLET BY MOUTH TWICE A DAY 180 Tablet 1 BD Pen Needle Mini U/F 31G X 5 MM (Insulin Pen Needle) Use to inject insulin once daily 100 Each 2 Make WorksTouch Ultra 2 w/Device Kit Use to check blood sugar up to three times a day. 1 Kit 0 Furosemide 20 MG Oral Tablet (Lasix) TAKE 1 TAB BY MOUTH DAILY NEEDED (SWELLING). FOR FLUID ACCUMULATION OR WEIGHT GAIN 90 Tablet 3 Estrogens Conjugated 0.3 MG Oral Tablet (Premarin) Take 1 Tablet by mouth in the morning. 90 Tablet0 Empagliflozin 25 MG Oral Tablet (Jardiance) TAKE BY MOUTH 1 TABLET IN THE MORNING. 90 Tablet 3 Albuterol Sulfate (2.5 MG/3ML) 0.083% Inhalation Nebulization Solution (Proventil) Inhale 1 Vial via nebulizer every 6 hours as needed for Wheezing. 360 mL 1 Budesonide-Formoterol Fumarate 160-4.5 MCG/ACT Inhalation Aerosol (Symbicort) TAKE 2 PUFFS BY MOUTHTWICE A DAY 30.6 g 3 Omeprazole 20 MG Oral Capsule Delayed Release (PriLOSEC) TAKE 1 CAPSULE BY MOUTH TWICE A DAY 180 Capsule 3 busPIRone HCl 15 MG Oral Tablet (Buspar) TAKE 1 TABLET BY MOUTH TWICE A DAY (Patient not taking: Reported on 01/10/2023) 180 Tablet 3 Albuterol Sulfate (5 MG/ML) 0.5% Inhalation Nebulization Solution (Proventil) 0.5 ml nebulized every 4-6 hr as needed. Diagnosis COPD J44.9 (Patient not taking: Reported on 12/01/2023) 100 mL 5 No current facility-administered medications for this visit. BP 122/62 (BP Site: Left Arm, BP Position: Sitting, BP Cuff Size: Regular) | Pulse 79 | Temp 36.7 C (98.1 F) (Tympanic) | Ht 1.549 m (5' 1") | Wt 58.6 kg (129 lb 1.6 oz) | SpO2 96% | BMI 24.39 kg/m | BSA 1.59 m GENERAL: well developed and well nourished in no acute distress SKIN: no rashes, ulcers, or spider angiomata, no tenagiectasias HEENT: normocephalic, sclerae clear, pharynx normal NECK: supple, no masses or thyroid enlargement LUNGS: clear to auscultation and percussion HEART: regular rate & rhythm, no murmurs and no gallops ABDOMEN: non-tender without guarding or rebound, soft, normo-active bowel sounds, no masses, no hepatosplenomegaly, no rebound or guarding, no bruits EXTREMITIES: no palmar erythema, no edema, no skin discoloration, no clubbing, no cyanosis, arthritic changes in hands NEURO: no lateralizing findings, Sensory/Motor grossly normal ASSESSMENT/PLAN: Dysphagia Motility disorder Endoflip c/w IEM Low EGJ DI at 50 mm distention and contrast retention at 1 mins - Possibly related to chronic reflux, DM; given subtle abnl on endoflip or esophagram, early achalasia also seems possible. She does not want soto or mano or med trials (Reglan? Buspirone? Motegirty) at this time. Encouraged better glycemic control. - RTC 1 year with repeat esophagram to look for worsening symptoms. Maria Antonia Irby MD documented in this encounter Nursing Notes * Kilo De Luna CMA - 02/13/2024 10:32 AM EDT Chief Complaint Patient presents with NEW PATIENT Dysphagia Ashley Mcneil is a 78 year old female who presents today for difficulty swallowing. She states that she had a upper endoscopy at [facility] in [place] on 01/23/2024. She wants to discuss results. documented in this encounter Plan of Treatment Upcoming Encounters Date Type Department Care Team (Late st Contact Info) Description 06/14/2024 8:40 AM EDT Office Visit [facility] [address] [place] [address] Jodie Farah MD [address], [place] [id number] Pending Results Name Type Priority Associated Diagnoses Date /Time ANTINUCLEAR ANTIBODY (JF) EIA SCREEN WITH REFLEX AB QUANT Lab Routine Esophageal dysmotility 02/13/2024 11:37 AM EDT Scheduled Orders Name Type Priority Associated Diagnoses Orde r Schedule ANTINUCLEAR ANTIBODY (JF) EIA SCREEN WITH REFLEX AB QUANT Lab Routine Esophageal dysmotility Expected: 02/13/2024, Expires: 02/12/2025 Scheduled Procedures Name Priority Associated Diagnoses Date/Ti [...] (REFER TO SMARTSET #1146) 05/22/2022 COVID-19 Vaccine (3 - 2022-24 season) 2023 02/12/2021, 01/22/2021 Diabetic Eye Exam [...] D LEVEL ONCE IN A LIFETIME-USE SMARTSET# 70738 Completed 05/31/2011 Hepatitis B Completed 09/23/2013, 0 11/2012, 03/23/2013 GARDASIL-HPV IMMUNIZATION SERIES Aged Out No longer eligible based on patient's age to complete this topic MENINGOCOCCAL (MENACTRA/MENVEO) Aged Out No longer eligible based on patient's age to complete this topic documented as of this encounter Medical Devices Not on filedocumented as of this encounter Visit Diagnoses Diagnosis Esophageal dysmotility- Primary Dyskinesia of esophagus documented in this encounter Care Teams Aquatic Habitat Biologist Relationship Specialty Start Date End Date Jodie Farah MD [address] [place] [address] PCP - General 01/08/02 documented as of this encounter
--- OUTSIDE RECORDS SUMMARY | 2024-04-10 06:00 | External Medical Summary | Summary of Care ---
Author Name Unknown Organization [facility] Address [address] [place] [address] Phone [phone] Care Team Providers Care Anesthesiologist Assistant Name Role Phone Anders Patel MD Primary Care Provider +1- [phone] Reason for Visit * Reason Onset Date Comments Test Results 02/08/2024 Encounter Details Date Type Department Care Team (Late st Contact Info) Description 02/08/2024 Telephone [place] [address] [place] [address] Breanna Heck MD [address] [place] [address] Test Results Allergies No known active allergiesdocumented [...] BEDTIME 45 mL 1 03/28/2023 Active Ipratropium [place] 0.03 % Nasal Solution (Atrovent)Indicati ons:Rhinitis, nonallergic,Rhinor felipe INSTILL 2 SPRAYS INTO EACH NOSTRIL FOUR TIMES A DAY 90 mL 1 04/10/2023 Active metFORMIN HCl 850 MG Oral Tablet (Glucophage) TAKE 1 TABLET BY MOUTH TWICE A DAY 180 Tablet 1 09/11/2023 Active Albuterol Sulfate (5 MG/ML) 0.5% Inhalation Nebulization Solution (Proventil)Indicat ions:COPD, severity to be determined ([facility]) 0.5 ml nebulized every 4-6 hr as needed. Diagnosis COPD J44.9 100 mL 5 09/26/2023 Active Additional Information Patient not taking.Reported on 12/01/2023 BD Pen Needle Mini U/F 31G X 5 MM (Insulin Pen Needle)Indications :Type 2 diabetes mellitus with hemoglobin A1c goal of less than 8.0% ([facility]) Use to inject insulin once daily 100 Each 2 10/09/2023 Active Alekto 2 w/Device Kit Use to check blood [...] mRNA, LNP-s, No Pre serve, 2-Dose Series ([employer]) 02/12/2021,01/22/2021 Hepatitis B, 20+ yrs 09/23/2013,04/23/2013,03/23 PPD [...] - Dalton Garrett MED ASSIST - 02/08/2024 1:49 PM EDT ----- Message from Breanna Heck MD sent at 02/08/2024 1:47 PM EDT ----- Please let patient know her MRI was normal and follow-up on any improvement in symptoms documented in this encounter Plan of Treatment Upcoming Encounters Date Type Department Care Team (Late st Contact Info) Description 02/13/2024 10:20 AM EDT Office Visit Gastroenterology, [address] [place] [address] Maria Antonia Irby MD [address] [place] [address] 06/14/2024 8:40 AM EDT Office Visit [facility] [address] [facility] [phone] Anders Patel MD [address] [place] [address] Scheduled Procedures Name Priority Associated Diagnoses Date/Ti [...] D LEVEL ONCE IN A LIFETIME-USE SMARTSET# 15436 Completed 05/31/2011 Hepatitis B Completed 09/23/2013, 11/2012, 03/23/2013 GARDASIL-HPV IMMUNIZATION SERIES Aged Out No longer eligible based on patient's age to complete this topic MENINGOCOCCAL (MENACTRA/MENVEO) Aged Out No longer eligible based on patient's age to complete this topic documented as of this encounter Medical Devices Not on filedocumented as of this encounter Care Teams Anesthesiologist Assistant Relationship Specialty Start Date End Date Anders Patel MD [address] [place] [address] PCP - General 01/08/02 documented as of this encounter
--- OUTSIDE RECORDS SUMMARY | 2024-04-10 06:00 | External Medical Summary | Summary of Care ---
Author Name Unknown Organization [facility] Address [address] [place] [address] Phone [phone] Care Team Providers Care Vehicle Maintenance Technician Name Role Phone Anders Farah MD Primary Care Provider +1- [phone] Reason for Visit * Reason Comments eRx-Medication Refill Encounter Details Date Type Department Care Team (Late st Contact Info) Description 03/10/2024 Refill [facility] [address] [place] [address] Anders Farah MD [address], [place] [id number] HTN, goal below 140/90; Dyslipidemia, goal LDL below 100 Allergies No known active allergiesdocumented as of this encounter (statuses as of 03/11/2024) Medications Medication Sig Dispensed Refills Start Date [...] BEDTIME 45 mL 1 3 Active Ipratropium [place] 0.03 % Nasal Solution (Atrovent)Indicat ions:Rhinitis, nonallergic,Rhino rrhea INSTILL 2 SPRAYS INTO EACH NOSTRIL FOUR TIMES A DAY 90 mL 1 3 Active metFORMIN HCl 850 MG Oral Tablet (Glucophage) TAKE 1 TABLET BY MOUTH TWICE A DAY 180 Tablet 1 3 Active Albuterol Sulfate (5 MG/ML) 0.5% Inhalation Nebulization Solution (Proventil)Indica tions:COPD, severity to be determined ([facility]) 0.5 ml nebulized every 4-6 hr as needed. Diagnosis COPD J44.9 100 mL 5 3 Active Additional Information Patient not taking.Reported on 12/01/2023 BD Pen Needle Mini U/F 31G X 5 MM (Insulin Pen Needle)Indication s:Type 2 diabetes mellitus with hemoglobin A1c goal of less than 8.0% ([facility]) Use to inject insulin once daily 100 Each 2 3 Active OneTouch Ultra 2 w/Device Kit Use to check blood sugar up to three times a day. 1 Kit 3 Active Furosemide 20 MG Oral Tablet (Lasix) TAKE 1 TAB BY MOUTH DAILY NEEDED (SWELLING). FOR FLUID ACCUMULATION OR WEIGHT GAIN 90 Tablet 3 4 Active Estrogens Conjugated 0.3 MG Oral Tablet (Premarin) Take 1 Tablet by mouth in the morning. 90 Tablet 4 Active Empagliflozin 25 MG Oral Tablet [...] MOUTH EVERY DAY 90 Tablet 4 Active Metoprolol Succinate ER 25 MG Oral Tablet Extended Release 24 Hour (toPROL XL)Indications:HT N, goal below 140/90 TAKE 1 TABLET BY MOUTH EVERY DAY 90 Tablet 3 3 03/11/20 24 Discontinued Lisinopril 5 MG Oral Tablet (Prinivil)Indicat ions:HTN, goal below 140/90 TAKE 1 TABLET BY MOUTH EVERY DAY 90 Tablet 3 3 03/11/20 24 Discontinued Rosuvastatin Calcium 5 MG Oral Tablet (Crestor)Indicati ons:Dyslipidemia, goal LDL below 100 TAKE 1 TABLET BY MOUTH EVERY DAY 90 Tablet 3 3 03/11/20 24 Discontinued documented as of this encounter (statuses as of 03/11/2024) Active Problems Problem Noted Date Diagnosed Date [...] as of this encounter (statuses as of 03/11/2024) Resolved Problems Problem Noted Date Diagnosed Date [...] as of this encounter (statuses as of 03/11/2024) Immunizations Name Administration Dates Next Due COVID-19 mRNA, LNP-s, No Pre serve, 2-Dose Series ([employer] 02/12/2021,01/22/2021 Hepatitis B, 20+ yrs 09/23/2013,04/23/2013,03/23 PPD [...] encounter Miscellaneous Notes * Telephone Encounter - Rosalind Pineda, [facility] - 03/11/2024 3:51 PM EDTSigned Prescriptions: Disp Refills Metoprolol Succinate ER 25 MG Oral Tablet *90 Tab*0 Sig: TAKE 1 TABLET BY MOUTH EVERY DAYAuthorizing Provider: ANDERS FARAH User: ROSALIND PINEDA Lisinopril 5 MG Oral Tablet (Prinivil) 90 Tab*0 Sig: TAKE 1 TABLET BY MOUTH EVERY DAYAuthorizing Provider: ANDERS FARAH User: ROSALIND PINEDA Rosuvastatin Calcium 5 MG Oral Tablet (Cre*90 Tab*0 Sig: TAKE 1 TABLET BY MOUTH EVERY DAYAuthorizing Provider: NADERS FARAHUser: ROSALIND PINEDA * Telephone Encounter - Rosalind Pineda RPh - 03/11/2024 3:50 PM EDT Rx's authorized until upcoming OV. Thank you, Rosalind Pineda, PharmD Clinical Pharmacist [facility] 03/11/24 3:50 PM [phone] documented in this encounter Plan of Treatment Upcoming Encounters Date Type Department Care Team (Late st Contact Info) Description 06/14/2024 8:40 AM EDT Office Visit [facility] [address] [place] [address] Anders Farah MD [address] [place] [address] Scheduled Procedures Name Priority Associated [...] (REFER TO SMARTSET #1146) 05/22/2022 COVID-19 Vaccine (2022- season) 2023 02/12/2021, 01/22/2021 Diabetic Eye Exam [...] D LEVEL ONCE IN A LIFETIME-USE SMARTSET# [id number] Completed 05/31/2011 Hepatitis B Completed 09/23/2013, 11/2012, [...] as of this encounter Visit Diagnoses Diagnosis HTN, goal below 140/90 Unspecified essential hypertension Dyslipidemia, goal LDL below 100 Other and unspecified hyperlipidemia documented in this encounter Care Teams Vehicle Maintenance Technician Relationship Specialty Start Date End Date Anders Farah MD [address] [place] [address] PCP - General 01/08/02 documented as of this encounter
--- OUTSIDE RECORDS SUMMARY | 2024-04-10 06:00 | External Medical Summary ---
Author Name Unknown Address Unknown Organization K01:LABORATORY [address] [facility] [address] Laboratory Report Ordering Provider Test Date Status FRANCISCO PHILIPPE 02/13/2024 11:37:24 Final Observation Date Value Abnormality Reference (Units ) Status Nuclear IgG Ab [Ratio] in Serum by Immunoassay 02/13/2024 11:37:24 Negative Negative Final DNA double strand Ab [Presence] in Serum 02/13/2024 11:37:24 Negative Negative Final DOUBLE STRANDED DNA VALUE - [facility] 02/13/2024 11:37:24 0.8 <20 (IU/mL) Final Extractable nuclear Ab [Presence] in Serum 02/13/2024 11:37:24 Negative Negative Final Nuclear IgG Ab [Ratio] in Serum by Immunoassay 02/13/2024 11:37:24 0.2 <0.7 (Ratio) Final Screening is based on detect ion of the following antibodies: dsDNA, U1-RELAY ASSOCIATE (RNP70, A, C), SS-A/Ro, SS-B / La, Haydee-1, Scl-70, Centromere B proteins and Sm proteins. In conjunction with clinical findings, this can aid in the diagnosis of systemic lupus erythematosous (SLE), mixed connective tissue disease (MCTD), Sjogren's syndrome, scleroderma and polymyositis/dermatomyositis.
However, a negative result does not rule out systemic rheumatic or other autoimmune disease. If clinically suspected, further evaluation and testing may be necessary. Please consult with Rheumatology Department.
Methodology: Fluorescent Enzyme Immunoassay. Performing Location LABORATORY [address] [facility] [address]
--- OUTSIDE RECORDS SUMMARY | 2024-04-10 06:00 | External Medical Summary | Summary of Care ---
Author Name Unknown Organization [facility] Address [address] [place] [address] Phone [phone] Care Team Providers Care Senior Analytic Consultant Name Role Phone Anders Patel MD Primary Care Provider [phone]- [phone] Reason for Referral * Precert (Within 24 hrs (call dept; emergent)) - Authorized Specialty Diagnoses / Procedures Referred By Contac t Referred To Contact Radiology Diagnoses Pain and numbness of right upper extremity Procedures MRI BRAIN WITHOUT CONTRAST Breanna Heck MD [address] [place] [address] [place] [address] Referral ID Status Reason Start Date Expiration Date V isits Requested Visits Authorized [id number] Authorized 02/05/2024 08/03/2024 999 999 Reason for Visit * Reason Comments Acute Encounter Details Date Type Department Care Team (Late st Contact Info) Description 02/05/2024 3:40 PM EDT Office Visit Family Practice [facility] [place] [address] [place] [address] Breanna Heck MD [address] [facility] [address] [place] [address] Pain and numbness of right upper extremity*; [place] (acute kidney injury) ([facility]); Type 2 diabetes mellitus with hemoglobin A1c goal of less than 8.0% ([facility]) Allergies No known active allergiesdocumented as of this encounter (statuses as of 02/22/2024) Medications Medication Sig Dispensed Refills Start Date End Date Status sodium chloride 0.9 % NEBU Use to dilute albuterol for use in nebulizer up to 4 times per day as needed - 50 vials of 3 mL 150 mL 5 7 Active Blood Glucose Monitoring Suppl (Popdeem ULTRA SYSTEM) w/Device KIT Use as directed 4 times a day as needed (sugars). Use up to four times a day as directed 1 Kit 0 8 Active Calcium 600 MG Tablet Take 2 Tablets by mouth in the morning. 0 Active metroNIDAZOLE (METROGEL-VAGINAL ) 0.75 % vaginal gel 0 9 Active Ketoconazole 2 % cream Apply to affected areas of face whenever needed 30 g 5 0 Active CallMineruch Ultra In Vitro Strip (Glucose Blood) USE TO CHECK BLOOD SUGARS UP TO 3 TIMES PER DAY. IDDM, DX E11.9 300 Strip 3 1 Active Azelastine HCl 0.1 % Nasal SolutionIndicatio ns:Rhinitis, nonallergic,Rhino rrhea INSTILL 2 SPRAYS INTO EACH NOSTRIL TWICE A DAY 90 mL 3 2 Active Metoprolol Succinate ER 25 MG Oral Tablet Extended Release 24 Hour (toPROL XL)Indications:HT N, goal below 140/90 TAKE 1 TABLET BY MOUTH EVERY DAY 90 Tablet 3 3 Active Lisinopril 5 MG Oral Tablet (Prinivil)Indicat ions:HTN, goal below 140/90 TAKE 1 TABLET BY MOUTH EVERY DAY 90 Tablet 3 3 Active Rosuvastatin Calcium 5 MG Oral Tablet (Crestor)Indicati ons:Dyslipidemia, goal LDL below 100 TAKE 1 TABLET BY MOUTH EVERY DAY 90 Tablet 3 3 Active Levemir FlexTouch 100 UNIT/ML Subcutaneous Solution Pen-injector (Insulin Detemir)Indicatio ns:Type 2 diabetes mellitus with insulin therapy (HCC) INJECT 36 UNITS UNDER THE SKIN ONCE DAILY AT BEDTIME 45 mL 1 3 Active Ipratropium Hockley 0.03 % Nasal Solution (Atrovent)Indicat ions:Rhinitis, nonallergic,Rhino rrhea INSTILL 2 SPRAYS INTO EACH NOSTRIL FOUR TIMES A DAY 90 mL 1 3 Active metFORMIN HCl 850 MG Oral Tablet (Glucophage) TAKE 1 TABLET BY MOUTH TWICE A DAY 180 Tablet 1 3 Active Albuterol Sulfate (5 MG/ML) 0.5% Inhalation Nebulization Solution (Proventil)Indica tions:COPD, severity to be determined ([facility]) 0.5 ml nebulized every 4-6 hr as needed. Diagnosis COPD J44.9 100 mL 5 3 Active Additional Information Patient not taking.Reported on 12/01/2023 BD Pen Needle Mini U/F 31G X 5 MM (Insulin Pen Needle)Indication s:Type 2 diabetes mellitus with hemoglobin A1c goal of less than 8.0% (HCC) Use to inject insulin once daily 100 Each 2 3 Active Telepath Ultra 2 w/Device Kit Use to check blood sugar up to three times a day. 1 Kit 0 3 Active Furosemide 20 MG Oral Tablet (Lasix) TAKE 1 TAB BY MOUTH DAILY NEEDED (SWELLING). FOR FLUID ACCUMULATION OR WEIGHT GAIN 90 Tablet 3 4 Active Estrogens Conjugated 0.3 MG Oral Tablet (Premarin) Take 1 Tablet by mouth in the morning. 90 Tablet 0 4 Active Empagliflozin 25 MG Oral Tablet [...] A DAY 180 Capsule 3 4 Active busPIRone HCl 15 MG Oral Tablet (Buspar) TAKE 1 TABLET BY MOUTH TWICE A DAY 180 Tablet 3 2 02/22/20 24 Discontinued documented as of this encounter (statuses as of 02/22/2024) Active Problems Problem Noted Date Diagnosed Date [...] as of this encounter (statuses as of 02/22/2024) Resolved Problems Problem Noted Date Diagnosed Date [...] as of this encounter (statuses as of 02/22/2024) Immunizations Name Administration Dates Next Due COVID-19 mRNA, LNP-s, No Pre serve, 2-Dose Series ([employer]) 02/12/2021,01/22/2021 Hepatitis B, 20+ yrs 09/23/2013,04/23/2013,03/23 PPD [...] Sign Reading Time Taken Comments Blood Pressure 124/70 02/05/2024 3:40 PM EDT Pulse 102 02/05/2024 3:40 PM EDT Temperature 37.6 C (99.6 F) 02/05/2024 3:40 PM ED T Respiratory Rate 16 02/05/2024 3:40 PM EDT Oxygen Saturation 94% 02/05/2024 3:40 PM EDT Inhaled Oxygen Concentration - - Weight 57.2 kg (126 lb 0.6 oz) 02/05/2024 3:40 P M EDT Height - - Body Mass Index 23.82 12/04/2023 8:00 AM EST documented in this encounter Progress Notes * Breanna Heck MD - 02/05/2024 3:57 PM EDT Subjective Chief Complaint Patient presents with Acute HPI: Ashley Mcneil is a 78 year old female. Patient is accompanied by her . The following issues were addressed today: Patient with T2DM presents today with c/o left arm swelling and bruising. She had an EGD done on 01/23/24 and on the ride home she began to feel burning in her left arm. Arm started to turn purple and her finger tips turned white. States she almost went back to [place] but she just wanted to get home. Since then she has developed worsening bruising from her mid-biceps down to her wrist. States herarm and hand feel numb and she has a constant burning pain. She reached out to GI who did not feel symptoms were related to EGD. It was recommended she go to the ER but she did not. Confirmed that IVwas placed in her right arm. Has been using warm compresses. Reviewed recent labs. Creatinine in October slightly elevated from baseline. Hgb A1c above goal, last 9.4% in November. Review of Systems: See HPI Objective BP 124/70 | Pulse 102 | Temp 37.6 C (99.6 F) (Tympanic) | Resp 16 | Wt 57.2 kg (126 lb 0.6 oz) | SpO2 94% | BMI 23.82 kg/m | BSA 1.57 m Wt Readings from Last 3 Encounters: 02/13/24 58.6 kg (129 lb 1.6 oz) 02/05/24 57.2 kg (126 lb 0.6 oz) 01/23/24 57.5 kg (126 lb 11.2 oz) BP Readings from Last 3 Encounters: 02/13/24 122/62 02/05/24 124/70 01/23/24 102/85 Ecchymosis along left triceps region extending into elbow and forearm. No erythema or warmth. Strength at shoulder, elbow, and wrist bilaterally is 5/5. Sensation is grossly intact. Pulses intact. Assessment & Plan 1. Pain and numbness of right upper extremity Check venous duplex to rule-out thrombosis. Given unilateral symptoms of subjective weakness and numbness, will check STAT MRI brain to evaluate for CVA. Consider thoracic outlet work-up if studies unremarkable. - MRI BRAIN WITHOUT CONTRAST; Future - VASC DUPLEX VENOUS UE UNILAT; Future - CK; Future 2. [place] (acute kidney injury) ([facility]) Update BMP. - BASIC METABOLIC PANEL; Future 3. Type 2 diabetes mellitus with hemoglobin A1c goal of less than 8.0% ([facility]) Hgb A1c above goal. Recommended follow-up with PCP. Continue current medications. Follow-up: Return if symptoms worsen or fail to improve. | Check-out note: STAT MRI ordered. DuplexUE ordered. Labs This note was electronically signed by Breanna Heck MD documented in this encounter Nursing Notes * Talita Montoya LPN - 02/05/2024 3:37 PM EDT Patient presents in office today with C/O after having procedure done left arm was purple from shoulder to fingers. Looked like that for 3 days. Was told to go to ER but did not want to. Used warm compresses. Arm still has some faded bruising and is still very painful especially by the wrist. Is not sure what even caused it as the IV was done on the right arm documented in this encounter Plan of Treatment Upcoming Encounters Date Type Department Care Team (Late st Contact Info) Description 06/14/2024 8:40 AM EDT Office Visit [address] [address] Anders Patel MD [address] [place] [address] Scheduled Procedures Name Priority Associated Diagnoses Date/Ti [...] D LEVEL ONCE IN A LIFETIME-USE SMARTSET# [id number] Completed 05/31/2011 Hepatitis B Completed 09/23/2013, 11/2012, [...] Not on filedocumented as of this encounter Results * VAS DUPLEX VENOUS UE UNILAT (02/08/2024 9:19 AM EDT) Anatomical Region Laterality Modality Upper Extremity, Vascular Ultras ound 02/08/2024 9:42 AM EDT Impressions 02/08/2024 9:40 AM EDT IMPRESSION No evidence of a deep venous thrombosis within the visualized veins of the left upper extremity. Narrative 02/08/2024 9:40 AM EDT EXAM VASC DUPLEX VENOUS UE UNILAT-02/08/2024 9:19 am HISTORY Ecchymosis and burning, left upper extremity TECHNIQUE Using duplex and color flow Doppler, the jugular, subclavian, axillary, basilic, cephalic, brachial, median cubital, radial and ulnar veins were evaluated in the left upper extremity. COMPARISON None. FINDINGS The internal jugular, subclavian, and axillary veins are patent and free of thrombus. The brachial, basilic, and cephalic veins are patent and compressible. The radial and ulnar veins are patent and free of thrombus. Procedure Note Fariba Hammer, - 02/08/2024 EXAM VASC DUPLEX VENOUS UE UNILAT-02/08/2024 9:19 am HISTORY Ecchymosis and burning, left upper extremity TECHNIQUE Using duplex and color flow Doppler, the jugular, subclavian, axillary,basilic, cephalic, brachial, median cubital, radial and ulnar veins wereevaluated in the left upper extremity. COMPARISON None. FINDINGS The internal jugular, subclavian, and axillary veins are patent and freeof thrombus. The brachial, basilic, and cephalic veins are patent and compressible. The radial and ulnar veins are patent and free of thrombus. IMPRESSION IMPRESSION No evidence of a deep venous thrombosis within the visualized veins of theleft upper extremity. Breanna Heck MD RAD VASCULAR * MRI BRAIN WITHOUT CONTRAST (02/08/2024 8:56 AM EDT) Anatomical Region Laterality Modality Neuro, Head Magnetic Resonan ce 02/08/2024 12:5 9 PM EDT Impressions 02/08/2024 12:57 PM EDT IMPRESSION 1. No acute intracranial abnormality detected. No focal finding identified to explain right upper extremity numbness and weakness. Narrative 02/08/2024 12:57 PM EDT EXAM MRI OF THE BRAIN WITHOUT IV CONTRAST -02/08/2024 8:56 am HISTORY Right upper extremity numbness and weakness. COMPARISON None. TECHNIQUE Multiplanar multisequential imaging performed through the head without contrast. FINDINGS No acute infarction, hemorrhage or intra-axial mass is detected in the cerebrum or posterior fossa. No solid extra-axial mass is identified. No abnormal extra-axial fluid is detected. The basilar cisterns are clear. The brain volume is within normal limits for age, and the ventricles are of normal size and contour. The major central cerebral arterial and dural venous sinus flow voids are maintained. Midline structures appear normally developed and positioned. The craniocervical junction appears normal. No acute paranasal sinus disease is appreciated. The middle ear cavities are grossly clear. The visualized portions of the orbits and facial soft tissues are unremarkable. No acute osseous lesion is detected. Procedure Note Ivette Nieves, Albert Gaytan MD - 02/08/2024 EXAM MRI OF THE BRAIN WITHOUT IV CONTRAST -02/08/2024 8:56 am HISTORY Right upper extremity numbness and weakness. COMPARISON None. TECHNIQUE Multiplanar multisequential imaging performed through the head withoutcontrast. FINDINGS No acute infarction, hemorrhage or intra-axial mass is detected in thecerebrum or posterior fossa. No solid extra-axial mass is identified. No abnormal extra-axial fluid is detected. The basilar cisterns are clear. The brain volume is within normal limits for age, and the ventricles areof normal size and contour. The major central cerebral arterial and dural venous sinus flow voids aremaintained. Midline structures appear normally developed and positioned. The craniocervical junction appears normal. No acute paranasal sinus disease is appreciated. The middle ear cavities are grossly clear. The visualized portions of the orbits and facial soft tissues areunremarkable. No acute osseous lesion is detected. IMPRESSION IMPRESSION 1. No acute intracranial abnormality detected. No focal findingidentified to explain right upper extremity numbness and weakness. Breanna Heck MD RAD MRI-MRA * (ABNORMAL) BASIC METABOLIC PANEL (02/05/2024 4:41 PM EDT) BUN 23(H) 6 - 20 mg/dL 02/06/2024 4:23 AM EDT [facility] Creatinine 1.1(H) 0.5 - 1.0 mg/dL 02/06/2024 4:23 AM EDT [facility] Estimated Glomerular Filtration Rate 53(L) >=60 mL/min 02/06/2024 4:23 AM EDT [facility] Comment:eGFR is calculated b ased on the CKD-EPI 2020 equation Sodium 136 135 - 146 mmol/L 02/06/2024 4:23 AM EDT [facility] Potassium 4.6 3.5 - 5.1 mmol/L 02/06/2024 4:23 AM EDT [facility] Chloride 94(L) 98 - 107 mmol/L 02/06/2024 4:23 AM EDT [facility] CO2 27 22 - 32 mmol/L 02/06/2024 4:23 AM EDT [facility] Anion Gap 15 7 - 15 mmol/L 02/06/2024 4:23 AM EDT [facility] Glucose 253(H) 70 - 120 mg/dL 02/06/2024 4:23 AM EDT [facility] Calcium 9.4 8.4 - 10.2 mg/dL 02/06/2024 4:23 AM EDT [facility] Blood Venous blood specimen / Unknown Venipuncture / Unknown 02/05/2024 4:41 PM EDT 02/05/2024 4:41 PM EDT Breanna Heck MD LAB BLOOD ORDERABLES [facility] [address] [place] [address] * CK (02/05/2024 4:41 PM EDT) CK 38 26 - 192 U/L 02/06/2024 4:23 AM EDT LABORATORY [facility] Blood Venous blood specimen / Unknown Venipuncture / Unknown 02/05/2024 4:41 PM EDT 02/05/2024 4:41 PM EDT Breanna Heck MD LAB BLOOD ORDERABLES [facility] [address] [place] [address] documented in this encounter Visit Diagnoses Diagnosis Pain and numbness of right upper extremity- Primary [place] (acute kidney injury) (HCC) Acute kidney failure, unspecified Type 2 diabetes mellitus with hemoglobin A1c goal of less than 8.0% (HCC) Pain and numbness of right upper extremity Pain and numbness of right upper extremity documented in this encounter Care Teams Senior Analytic Consultant Relationship Specialty Start Date End Date Anders Patel MD [address] [place] [address] PCP - General 01/08/02 documented as of this encounter"
--- OUTSIDE RECORDS SUMMARY | 2024-04-10 06:01 | External Medical Summary ---
Author Name Unknown Address Unknown Organization K01:LABORATORY C - [address] [place] [address] Laboratory Report Ordering Provider Test Date Status RODGER GREENE 02/05/2024 16:41:19 Final Observation Date Value Abnormality Reference (Units ) Status CK 02/05/2024 16:41:19 38 26-192 (U/ L) Final Performing Location [facility] - [address] [place] [address]
--- OUTSIDE RECORDS SUMMARY | 2024-04-10 06:01 | External Medical Summary | Summary of Care ---
Author Name Unknown Organization [facility] Address [address] [place] [address] Phone [phone] Care Team Providers Care Bridal Gown Fitter Name Role Phone Anders Patel MD Primary Care Provider +1- [phone] Reason for Visit * Reason Comments Outpatient Testing Encounter Details Date Type Department Care Team (Late st Contact Info) Description 02/05/2024 4:00 PM EDT Laboratory Laboratory [facility] [address] [place] [address] [facility] [address] [facility] [place] [address] Pain and numbness of right upper extremity; [place] (acute kidney injury) (HCC) Allergies No known active allergiesdocumented as of this encounter (statuses as of 02/05/2024) Medications Medication Sig Dispensed Refills Start Date [...] BEDTIME 45 mL 1 03/28/2023 Active Ipratropium Ewing 0.03 % Nasal Solution (Atrovent)Indicati ons:Rhinitis, nonallergic,Rhinor felipe INSTILL 2 SPRAYS INTO EACH NOSTRIL FOUR TIMES A DAY 90 mL 1 04/10/2023 Active metFORMIN HCl 850 MG Oral Tablet (Glucophage) TAKE 1 TABLET BY MOUTH TWICE A DAY 180 Tablet 1 09/11/2023 Active Albuterol Sulfate (5 MG/ML) 0.5% Inhalation Nebulization Solution (Proventil)Indicat ions:COPD, severity to be determined ([facility]) 0.5 ml nebulized every 4-6 hr as needed. Diagnosis COPD J44.9 100 mL 5 09/26/2023 Active Additional Information Patient not taking.Reported on 12/01/2023 BD Pen Needle Mini U/F 31G X 5 MM (Insulin Pen Needle)Indications :Type 2 diabetes mellitus with hemoglobin A1c goal of less than 8.0% ([facility]) Use to inject insulin once daily 100 Each 2 10/09/2023 Active Liquid Machines Ultra 2 w/Device Kit Use to check [...] as of this encounter (statuses as of 02/05/2024) Active Problems Problem Noted Date Diagnosed Date [...] as of this encounter (statuses as of 02/05/2024) Resolved Problems Problem Noted Date Diagnosed Date [...] as of this encounter (statuses as of 02/05/2024) Immunizations Name Administration Dates Next Due COVID-19 mRNA, LNP-s, No Pre serve, 2-Dose Series ([employer]) 02/12/2021,01/22/2021 Hepatitis B, 20+ yrs 09/23/2013,04/23/2013,03/23 PPD [...] Team (Late st Contact Info) Description 02/08/2024 8:15 AM EDT Imaging [facility], a service of [facility] [address] [place] [address] 02/08/2024 9:45 AM EDT Imaging [facility], a service of [facility] [address] [place] [address] 02/13/2024 10:20 AM EDT Office Visit Gastroenterology, [facility] [address] [place] [address] Maria Antonia Irby MD [address] [place] [address] 06/14/2024 8:40 AM EDT Office Visit [facility] [address] [place] [address] Anders Patel MD [address] [place] [address] Pending Results Name Type Priority Associated Diagnoses Date /Time CK Lab Routine Pain and numbness of right upper extremity 02/05/2024 4:41 PM EDT BASIC METABOLIC PANEL Lab Routine [place] (acute kidney injury) (HCC) 02/05/2024 4:41 PM EDT Scheduled Procedures Name Priority Associated Diagnoses [...] 10/04/2023, Additional history exists Albumin/Creatinine Ratio 11/28/2024 022 024, 07/11/2023, 04/18/2022, Additional history exists Diabetic Foot Exam 12/01/2024 12/01/2023, 0 02/22/2022, 05/19/2021, Additional history exists B-12 12/19/2024 12/19/2023, 02/0 03/2024, 07/11/2023, Additional history exists GFR 12/19/2024 12/19/2023, 02/0 03/2024, 10/04/2023, Additional history exists DXA Scan 04/18/2025 04/18/2023, 03/24, 01/19/2018, Additional history exists COLONOSCOPY-EVERY 5 YRS AGES 18-100 06/11/2025 06/11/2020, 06/11/2020, 06/04/2015, Additional history exists DTaP,Tdap,and Td Vaccines (3 - Td or Tdap) 03/19/2031 03/19/2021, 03/25/2011 VITAMIN D LEVEL ONCE IN A LIFETIME-USE SMARTSET# [id number] Completed 05/31/2011 Hepatitis B Completed 09/23/2013, 11/2012, 03/23/2013 GARDASIL-HPV IMMUNIZATION SERIES Aged Out No longer eligible based on patient's age to complete this topic MENINGOCOCCAL (MENACTRA/MENVEO) Aged Out No longer eligible based on patient's age to complete this topic documented as of this encounter Medical Devices Not on filedocumented as of this encounter Visit Diagnoses Diagnosis Pain and numbness of right upper extremity [place] (acute kidney injury) (HCC) Acute kidney failure, unspecified documented in this encounter Care Teams Bridal Gown Fitter Relationship Specialty Start Date End Date Anders Patel MD [address] [place] [address] PCP - General 01/08/02 documented as of this encounter
--- OUTSIDE RECORDS SUMMARY | 2024-04-10 06:01 | External Medical Summary | Summary of Care ---
Author Name Unknown Organization [facility] Address [address] [place] [address] Phone [phone] Care Team Providers Care Emergency Department Coordinator Name Role Phone Anders Patel MD Primary Care Provider [phone] Encounter Details Date Type Department Care Team (Late st Contact Info) Description 02/01/2024 Orders Only [facility] [address] [place] [address] Anders Patel MD [address] [place] [address] Allergies No known active allergiesdocumented as of this encounter (statuses as of 02/01/2024) Medications Medication Sig Dispensed Refills Start Date [...] Active metroNIDAZOLE (METROGEL-VAGINAL) 0.75 % vaginal gel INSERT 1 APPLICATOR BEDTIME X 5 NIGHTS 0 03/19/2019 Active Ketoconazole 2 % cream [...] BEDTIME 45 mL 1 03/28/2023 Active Ipratropium [place] 0.03 % Nasal Solution (Atrovent)Indicati ons:Rhinitis, nonallergic,Rhinor [...] once daily 100 Each 2 10/09/2023 Active [employer] 2 w/Device Kit Use to check blood [...] as of this encounter (statuses as of 02/01/2024) Active Problems Problem Noted Date Diagnosed Date [...] as of this encounter (statuses as of 02/01/2024) Resolved Problems Problem Noted Date Diagnosed Date [...] as of this encounter (statuses as of 02/01/2024) Immunizations Name Administration Dates Next Due COVID-19 mRNA, LNP-s, No Pre serve, 2-Dose Series ([employer]) 02/12/2021,01/22/2021 Hepatitis B, 20+ yrs 09/23/2013,04/23/2013,03/23 PPD [...] 02/13/2024 10:20 AM EDT Office Visit Gastroenterology, [facility] [address] [id number] Maria Antonia Irby MD [address] [phone] 06/14/2024 8:40 AM EDT Office Visit [facility] [address] [id number] Anders Patel MD [address] [place] [address] Scheduled Procedures Name Priority Associated [...] D LEVEL ONCE IN A LIFETIME-USE SMARTSET# [id number] Completed 05/31/2011 Hepatitis B Completed 09/23/2013, 070 11/2012, 03/23/2013 GARDASIL-HPV IMMUNIZATION SERIES Aged Out No longer eligible based on patient's age to complete this topic MENINGOCOCCAL (MENACTRA/MENVEO) Aged Out No longer eligible based on patient's age to complete this topic documented as of this encounter Medical Devices Not on filedocumented as of this encounter Procedures Procedure Name Priority Date/Time Associated Diagnosis Comments MAMMOGRAM SCREENING BILATERAL Routine 01/30/2024 documented in this encounter Results * MAMMOGRAM SCREENING BILATERAL (01/30/2024) Anatomical Region Laterality Modality Breast Bilateral Other 01/30/2024 Anders Patel MD RAD MAMMOGRAPHY documented in this encounter Care Teams Emergency Department Coordinator Relationship Specialty Start Date End Date Anders Patel MD [address] [place] [address] PCP - General 01/08/02 documented as of this encounter
--- OUTSIDE RECORDS SUMMARY | 2024-04-10 06:01 | External Medical Summary ---
Author Name Unknown Address Unknown Organization K01:LAB[facility] [place] - [address] [place] [address] Laboratory Report Ordering Provider Test Date Status RODGER GREENE 02/05/2024 16:41:19 Final Observation Date Value Abnormality Reference (Units ) Status BUN 02/05/2024 16:41:19 23 Above high normal 6-20 (mg/dL) Final Creatinine 02/05/2024 16:41:19 1.1 Above high normal 0.5-1.0 (mg/dL) Final Glomerular filtration rate/1.73 sq M.predicted [Volume Rate/Area] in Serum, Plasma or Blood by Creatinine-based formula (CKD-EPI) 02/05/2024 16:41:19 53 Below low normal >=60 (mL/min) Final eGFR is calculated based on the CKD-EPI 2020 equation Sodium 02/05/2024 16:41:19 136 135-146 (m mol/L) Final Potassium 02/05/2024 16:41:19 4.6 3.5-5.1 (m mol/L) Final Cl 02/05/2024 16:41:19 94 Below low normal 98- 107 (mmol/L) Final CO2 02/05/2024 16:41:19 27 22-32 (mmo l/L) Final Anion gap 02/05/2024 16:41:19 15 7-15 (mmol /L) Final Glucose 02/05/2024 16:41:19 253 Above high normal 70 -120 (mg/dL) Final Calcium 02/05/2024 16:41:19 9.4 8.4-10.2 ( mg/dL) Final Performing Location [facility] - [address] [place] [address]
[2024-04-10 06:17] LABS: Basophils # (auto) 0.03 K/uL (0.00-0.20); Basophils % (auto) 0.5 %; Eosinophils # (auto) 0.27 K/uL (0.00-0.50); Eosinophils % (auto) 4.1 %; Hematocrit (blood only) 36.8 % (37.0-47.0); Hemoglobin 12.1 g/dl (12.0-16.0); Immature Granulocytes # (auto) 0.02 K/uL (0.01-0.20); Immature Granulocytes % (auto) 0.3 %; Lymphocytes # (auto) 1.92 K/uL (1.20-3.40); Lymphocytes % (auto) 29.4 %; Mean Corpuscular Hemoglobin 28.7 pg (25.0-34.0); Mean Corpuscular Hgb Conc 32.9 g/dL (32.0-36.0); Mean Corpuscular Volume 87.2 fL (80.0-100.0); Mean Platelet Volume 9.4 fL (9.4-12.4); Monocytes # (auto) 0.47 K/uL (0.11-0.59); Monocytes % (auto) 7.2 %; Neutrophils # (auto) 3.81 K/uL (1.40-6.50); Neutrophils % (auto) 58.5 %; Platelet Count 264 K/uL (130-400); RDW Coefficient of Variation 13.4 % (11.5-14.5); RDW Standard Deviation 42.5 fL (36.4-46.3); Red Blood Count 4.22 M/uL (4.20-5.40); White Blood Count 6.52 K/ul (4.8-10.8)
[2024-04-10 06:35] LABS: BUN Creatinine Ratio 27.4 (10-20); Calcium 8.8 mg/dl (8.6-10.3); Creatinine Clr Calc Pharmacy 46.5 ml/min; Est GFR (African American) 77.7 ml/min; Potassium 4.4 mmol/L (3.5-5.1)
[2024-04-10] MEDS: AZELASTINE HCL 0.1% NASAL 200 SPRAYS/27,400 MCG BTL NAE SCH (08:04)
[2024-04-10] MEDS: ENOXAPARIN INJ 40 MG/0.4 ML SYR SQ SCH (08:05)
[2024-04-10] MEDS: ROSUVASTATIN CALCIUM 5 MG TAB PO SCH (08:06)
[2024-04-10] MEDS: PANTOprazole 40 MG TAB PO SCH (08:06)
[2024-04-10] MEDS: METOPROLOL SUCC 25MG EXT REL TAB PO SCH (08:06)
[2024-04-10] MEDS: lisinopril 10 MG TAB PO SCH (08:06)
[2024-04-10] MEDS ORDERED: FLUTICASONE/VILANTEROL 200/25MCG 14 PUFFS/INHALER INH SCH (09:00)
--- NOTE | 2024-04-10 10:30 | Cardiology Consultation ---
Date of Consultation April 10, 2024 Assessment & Plan (1) Chest pain: (2) Elevated troponin: (3) Hypertension: (4) Hyperlipidemia: (5) DM (diabetes mellitus), type 2: (6) GERD (gastroesophageal reflux disease): Plan Assessment: 78 year-old female presents for evaluation of sudden onset chest pain, varying in intensity, but has not completely resolved. Plan: 1. chest pain 2. Elevated Troponin: -Etiology unclear. Sudden onset in nature, no relief from SL NTG;however, also suspect that the RX was . 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 -Patient has had repeat episodes overnight, and reports that she continues to remains with a steady achiness aside from the recurrent episodes. No repeat EKG done. Will obtain one now. -HS Troponin shows mild elevation with flat trend. -Obtain echocardiogram to further assess overall structure, function and for any wall motion abnormality. -Review of telemetry demonstrates no ectopy or acute events. -Continue Metoprolol succinate, Lisinopril and Crestor at this time as per home regimen, will provide further recommendations pending echocardiogram. 3. HTN -Well controlled. -Continue Metoprolol succinate and Lisinopril 4. HLD: -most recent OP labs show Triglycerides ( 386) well above target, low HDL and controlled at 81. -Obtain fasting lipid panel -Continue Crestor Case has been discussed with Dr. Shetty. Further recommendations regarding plan of care as per his assessment. I spent a total of 40 minutes on the date of service in preparation, delivery, documentation of the care provided to the patient excluding any time spent in the performance of separately billed services. JAREK Vargas [facility] Supervising Physician Co-Signing Physician Notes I have personally performed a history and physical examination on the patient. I have reviewed the advance practitioner's documentation, and I agree with, and take responsibility for the plan of care. 78-year-old female present to the emergency department with episode of chest discomfort at approximately 2 PM on Monday. Describes a cramping sensation on left side of her chest with radiation to the left shoulder. Symptoms occurring at rest lasting approximately 30 minutes. Discomfort unrelieved with sublingual nitroglycerin. High-sensitivity troponin minimally elevated and flat. No ischemic ECG changes resting echocardiogram demonstrates normal wall motion with mild concentric left ventricular hypertrophy. Uncontrolled diabetes per most recent hemoglobin A1c. Systolic blood pressure up to 180 mmHg on admission. Further ischemic evaluation is warranted. I long conversation with the patient regarding risk/benefit of cardiac catheterization versus noninvasive, exercise stress testing. Patient prefers to avoid invasive testing at this time. Agreeable to exercise stress echo. Further recommendations pending review of results. Titrate lisinopril to 10 mg daily to improve blood pressure control. Diabetes management as per internal medicine. Most recent LDL 81 mg/DL. Continue statin therapy. I spent a total of 35 minutes on the date of service in preparation, delivery, and documentation of the care provided to this patient, excluding any time spent in the performance of separately billed services. Addendum: Exercise stress echo negative for inducible ischemia. Hypertensive blood pressure response to exercise recorded. No further inpatient cardiac testing or intervention recommended at this time. Hiatal hernia noted on CT. Consider GI consultation. History of Present Illness Reason for Consultation: Chest pain Requesting Physician: Jose ley Attending Physician: Darion Mcdaniels MD History of Present Illness HPI: Patient is a 78 year-old female with PMHx significant for HTN, HLD, GERD, asthma and DM that presented with complaints of chest pain. patient states that she was sitting in a chair yesterday afternoon at home when she developed sudden onset chest pain described as a squeezing pressure and eventually evolved into a "cramping" sensation in her left anterior chest and radiated into her left shoulder and down to her elbow region. Reports that the pain initially was intense for approx 45 minutes despite getting up and walking around, attempting position changes, and eventually trying a SL NTG that her had due to his health issues. She reports that she felt no relief and therefore decided it was time to present to the ED for further evaluation. robert ent states that when she experienced the pain that she felt a little "foggy in the head", but no other associated symptoms. She has never had an event like this before. EKG in the ED demonstrates NSR with notation of possible prior anteroseptal infarct, rate 77bpm. This was compared with a prior EKG dated 02/25/2011 in the [employer] system which is completely unchanged. last record of any stress test was 2008 with a negative stress echo. Chest x-ray negative for any acute process Chest CTA negative for PE or any other acute process. Electrolytes stable. High sensitivity troponin 38.3 and 37.5. BSG > 400 at time of admission, has since normalized. Review of telemetry demonstrates SR with no ectopy and no acute events overnight. Rates in the 60-80bpm. Allergies Allergy/AdvReac Type Severity Reaction Status Date / Time No Known Allergies Allergy Unknown Verified 04/09/24 19:39 Home Medications Medication Instructions Recorded Confirmed Type albuterol sulfate 2.5 mg/3 mL 2.5 mg inhalation Q6H PRN Wheezing 04/09/24 04/09/24 History (0.083 %) solution for nebulization azelastine 137 mcg (0.1 %) nasal 2 spray intranasal BID 04/09/24 04/09/24 History spray aerosol budesonide-formoterol HFA 160 2 puff inhalation BID PRN 04/09/24 04/09/24 History mcg-4.5 mcg/actuation aerosol NEEDED PER PT inhaler (Symbicort) calcium carbonate 1,000 mg PO DAILY 04/09/24 04/09/24 History conjugated estrogens 0.3 mg tablet 0.3 mg PO DAILY 04/09/24 04/09/24 History (Premarin) empagliflozin 25 mg tablet 25 mg PO QAM 04/09/24 04/09/24 History (Jardiance) furosemide 20 mg tablet 36 mg PO DAILY PRN Fluid Retention 04/09/24 04/09/24 History insulin detemir U-100 100 unit/mL 28 unit subcut HS 04/09/24 04/09/24 History (3 mL) subcutaneous pen ipratropium bromide 21 mcg (0.03 2 spray intranasal QID 04/09/24 04/09/24 History %) nasal spray ketoconazole 2 % topical cream 1 applic topical DIRECTED PRN 04/09/24 04/09/24 History AFFECTED AREAS ON FACE lisinopril 5 mg tablet 5 mg PO DAILY 04/09/24 04/09/24 History metformin 850 mg tablet 850 mg PO BID 04/09/24 04/09/24 History metoprolol succinate 25 mg 25 mg PO DAILY 04/09/24 04/09/24 History tablet,extended release 24 hr omeprazole 20 mg capsule,delayed 20 mg PO BID 04/09/24 04/09/24 History release rosuvastatin 5 mg tablet 5 mg PO DAILY 04/09/24 04/09/24 History sodium chloride 0.9 % for 3 ml inhalation QID PRN NEEDED 04/09/24 04/09/24 History nebulization PER PT. Patient History Medical History Bursitis of right hip Hamstring strain Surgical History Hx of tonsillectomy H/O: hysterectomy Family History Other Diabetes Heart disease Social History (Updated 04/09/24 @ 21:00 by Celia Prince PA-C) Smoking Status: Never smoker Second Hand Exposure: No; Do You Dip or Chew Tobacco: No; Tobacco Cessation Education Requested by Patient: No Hx Alcohol Use: No Hx Substance Use: No Preferred Language: Nigerien Communication Ability: Effective Hydrologist Required: No Beliefs That Will Affect Care: None Current Living Situation: Spouse Other Information That Helps Us Care for You: No Feels Safe at Home: Yes Safety Concerns: Feels Safe At This Time Assistive Devices: None Review of Systems Review of Systems: All systems reviewed & are unremarkable except as noted in HPI & below Physical Exam Constitutional: well developed and well nourished; no acute distress and not ill appearing Neck: normal visual inspection and trachea midline Respiratory: normal respiratory effort, lungs clear to auscultation Cardiovascular: Rate/Rhythm: regular rate and regular rhythm Heart Sounds: normal S1 and normal S2; no murmur Vessels: dorsalis pedis pulses present; no JVD Skin: no rashes, warm and dry Psychiatric: A+Ox3, euthymic affect Results & Data Vital Signs (Past 12 Hours) Vital Signs Temp Pulse Pulse Resp BP BP Pulse Ox 04/10/24 07:42 36.3 C L 68 21 125/72 95 04/10/24 02:42 36.5 C 60 18 102/55 L 95 04/10/24 02:02 36.5 C 68 18 160/76 H 94 04/10/24 02:00 56 L 04/10/24 01:00 56 L 12 126/86 98 04/10/24 00:04 57 L 04/09/24 23:06 56 L 15 150/69 H 90 04/09/24 23:03 56 L 04/09/24 22:45 91 04/09/24 22:33 62 13 92 04/09/24 22:31 138/67 O2 Del Method 04/10/24 07:42 Room Air 04/10/24 02:42 Room Air 04/10/24 02:02 Room Air 04/10/24 02:00 04/10/24 01:00 04/10/24 00:04 04/09/24 23:06 04/09/24 23:03 04/09/24 22:45 04/09/24 22:33 04/09/24 22:31 Laboratory Results Cardiac Enzymes 04/09/24 04/09/24 Range/Units 17:58 19:41 AST 11 L (13-39) U/L Troponin I High Sens 38.3 H 37.5 H (0-14) pg/ml Coagulation 04/09/24 Range/Units 17:58 PT 9.4 (9.0-12.0) Seconds APTT 25 (21-31) Seconds CBC 04/09/24 04/10/24 Range/Units 17:58 05:34 WBC 6.84 6.52 (4.8-10.8) K/ul RBC 4.24 4.22 (4.20-5.40) M/uL Hgb 12.2 12.1 (12.0-16.0) g/dl Hct 37.1 36.8 L (37.0-47.0) % Plt Count 282 264 (130-400) K/uL Neut # (Auto) 4.50 3.81 (1.40-6.50) K/uL Lymph # (Auto) 1.66 1.92 (1.20-3.40) K/uL Summers # (Auto) 0.39 0.47 (0.11-0.59) K/uL Eos # (Auto) 0.23 0.27 (0.00-0.50) K/uL Baso # (Auto) 0.04 0.03 (0.00-0.20) K/uL Comprehensive Metabolic Panel 04/09/24 04/10/24 Range/Units 17:58 05:34 Sodium 131 L 136 (136-145) mmol/L Potassium 4.3 4.4 (3.5-5.1) mmol/L Chloride 97 L 101 (98-107) mmol/L Carbon Dioxide 24 30 (21-32) mmol/L BUN 24 H 23 (6-23) mg/dl Creatinine 0.94 0.84 (0.6-1.2) mg/dl Glucose 478 H* 166 H (70-99(Fasting)) mg/dl Calcium 9.0 8.8 (8.6-10.3) mg/dl AST 11 L (13-39) U/L ALT 8 (7-52) U/L Alkaline Phosphatase 66 (34-104) U/L Total Protein 6.5 (6.0-8.3) gm/dl Albumin 3.9 (3.4-5.0) gm/dl Intake and Output 04/09/24 04/10/24 04/10/24 22:59 06:59 14:59 Other: Weight 58.9 kg 59.6 kg Weight Measurement Method Built in Bedscale Standing Scale (1) Chest pain Chest pain type: other chest pain Qualified Code(s): R07.89 - Other chest pain (3) Hypertension Hypertension type: primary hypertension Qualified Code(s): I10 - Essential (primary) hypertension (4) Hyperlipidemia Hyperlipidemia type: mixed hyperlipidemia Qualified Code(s): E78.2 - Mixed hyperlipidemia
[2024-04-10] MEDS: INSULIN ASPART PER UNIT CHARGE SC SCH (12:34)
[2024-04-10 13:31] LABS: Estimated Average Glucose 243 mg/dl; Hemoglobin A1C 10.1 % (4.5-5.6)
--- NOTE | 2024-04-10 16:14 | Electrocardiogram Report ---
Test Reason : Blood Pressure : / mmHG Vent. Rate : 065 BPM Atrial Rate : 065 BPM P-R Int : 156 ms QRS Dur : 066 ms QT Int : 416 ms P-R-T Axes : 020 054 063 degrees QTc Int : 432 ms Normal sinus rhythm Low voltage QRS Borderline ECG When compared with ECG of 09-APR-2024 17:51, (unconfirmed) Minimal criteria for Anteroseptal infarct are no longer Present Confirmed by Mehrdad Degroot ([id number]) on 04/10/2024 4:14:24 PM Referred By: REFERRED SELF Confirmed By:Mehrdad Degroot
--- NOTE | 2024-04-10 16:20 | Electrocardiogram Report ---
Test Reason : Blood Pressure : / mmHG Vent. Rate : 077 BPM Atrial Rate : 077 BPM P-R Int : 158 ms QRS Dur : 064 ms QT Int : 368 ms P-R-T Axes : -27 013 050 degrees QTc Int : 416 ms Normal sinus rhythm Low voltage QRS Cannot rule out Anteroseptal infarct , age undetermined Abnormal ECG When compared with ECG of 28-MAR-2017 11:29, Minimal criteria for Anteroseptal infarct are now Present Confirmed by Mehrdad Degroot ([id number]) on 04/10/2024 4:19:39 PM Referred By: REFERRED SELF Confirmed By:Mehrdad Degroot
[2024-04-10] MEDS: oxyCODONE HCL IR 5 MG TAB (IMMEDIATE RELEASE) PO PRN (17:23)
[2024-04-10] MEDS: MoRPHine SULFATE 4 MG/ML 1 ML CARP\\VIAL IV PRN (18:27)
--- NOTE | 2024-04-10 18:51 | Hospitalist Progress Note ---
Date of Service April 10, 2024 Assessment & Plan (1) Chest pain: Plan: 78 yo F with uncontrolled type 2 diabetes, dyslipidemia, asthma, GERD who presents from home with chest pain that came on suddenly at rest at 2:30pm. Left-sided chest pain unresponsive to nitroglycerin. Highest SBP of 180s documented at the ER. Chest pain possibly from uncontrolled hypertension Troponin elevation secondary to above PCU Titrate home lisinopril Follow troponin- downtrended from 38 to 25 Echo obtained -LV systolic function is normal. LVEF 60 to 65%. There is mild concentric LVH. There is mild mitral regurg Cardiology consulted - plan for stress test DM2, insulin requiring, suboptimal control as of recent hemoglobin A1c of 9.26 November 2023 Basal bolus insulin, ISS BG goal 110-140, carb count coverage updated current hemoglobin A1c 10.1% Hyperlipidemia on statin Rx GERD stable on regimen DVT prophylaxis. Lovenox subcu Full code Admission and Anticipated Discharge Date Admission Date: April 09, 2024 Subjective Pt seen in follow up of chest pain Currently laying in bed in NAD Reports having severe cramping pain on the left side of her chest radiating to her arm which prompted her to come to the hospital, she then had 2 shorter episodes of chest pain overnight Currently feels comfortable , no shortness of breath or dizziness Discussed with cardiology AP, likely plan for stress test Review of Systems Review of Systems: All systems reviewed & are unremarkable except as noted in Subjective Physical Exam Physical Exam: General Appearance: WD/WN, F in NAD Head: normocephalic, atraumatic Eyes: normal inspection, PERRL ENT: external ear and nose normal, oropharynx normal Neck: normal visual inspection Respiratory: normal respiratory effort, lungs clear to auscultation Cardiovascular: regular rate, rhythm, no murmur, normal peripheral pulses, no BLE edema Chest: normal inspection of chest Abdomen/GI: normal bowel sounds, soft, nontender Extremities/Musculoskeletal: extremities motor strength 5/5 Neurologic: PERRL, EOMI, no face palsy, no dysarthria, moves all extremities Psychiatric: A+Ox3, euthymic affect Skin: no rashes, normal color, warm/dry Results & Data Results & Data Vital Signs (Past 12 Hours) Vital Signs Temp Pulse Resp BP Pulse Ox O2 Del Method 04/10/24 15:50 36.6 C 78 20 138/83 92 Room Air 04/10/24 12:11 36.4 C L 61 20 165/84 H 94 Room Air 04/10/24 07:42 36.3 C L 68 21 125/72 95 Room Air Laboratory Results 04/10/24 04/10/24 04/10/24 Range/Units 16:23 12:55 11:28 WBC (4.8-10.8) K/ul RBC (4.20-5.40) M/uL Hgb (12.0-16.0) g/dl Hct (37.0-47.0) % MCV (80.0-100.0) fL MCH (25.0-34.0) pg MCHC (32.0-36.0) g/dL RDW Std Deviation (36.4-46.3) fL RDW Coeff of Levon (11.5-14.5) % Plt Count (130-400) K/uL MPV (9.4-12.4) fL Immature Gran % (Auto) % Neut % (Auto) % Lymph % (Auto) % [place] % (Auto) % Eos % (Auto) % Baso % (Auto) % Neut # (Auto) (1.40-6.50) K/uL Lymph # (Auto) (1.20-3.40) K/uL [place] # (Auto) (0.11-0.59) K/uL Eos # (Auto) (0.00-0.50) K/uL Baso # (Auto) (0.00-0.20) K/uL Immature Gran # (Auto) (0.01-0.20) K/uL Sodium (136-145) mmol/L Potassium (3.5-5.1) mmol/L Chloride (98-107) mmol/L Carbon Dioxide (21-32) mmol/L Anion Gap (3-11) BUN (6-23) mg/dl Creatinine (0.6-1.2) mg/dl Est Cr Clr Drug Dosing ml/min Est GFR ( Amer) ml/min Est GFR (Non-Af Amer) ml/min BUN/Creatinine Ratio (10-20) Glucose (70-99(Fasting)) mg/dl POC Glucose 173 H 223 H (70-99) mg/dl Estimat Average Glucose 243 mg/dl Hemoglobin A1c 10.1 H (4.5-5.6) % Calcium (8.6-10.3) mg/dl Magnesium (1.7-2.4) mg/dl Troponin I High Sens 25.3 H D (0-14) pg/ml 04/10/24 04/09/24 04/09/24 Range/Units 05:34 22:06 19:41 WBC 6.52 (4.8-10.8) K/ul RBC 4.22 (4.20-5.40) M/uL Hgb 12.1 (12.0-16.0) g/dl Hct 36.8 L (37.0-47.0) % MCV 87.2 (80.0-100.0) fL MCH 28.7 (25.0-34.0) pg MCHC 32.9 (32.0-36.0) g/dL RDW Std Deviation 42.5 (36.4-46.3) fL RDW Coeff of Levon 13.4 (11.5-14.5) % Plt Count 264 (130-400) K/uL MPV 9.4 (9.4-12.4) fL Immature Gran % (Auto) 0.3 % Neut % (Auto) 58.5 % Lymph % (Auto) 29.4 % Metcalfe % (Auto) 7.2 % Eos % (Auto) 4.1 % Baso % (Auto) 0.5 % Neut # (Auto) 3.81 (1.40-6.50) K/uL Lymph # (Auto) 1.92 (1.20-3.40) K/uL Metcalfe # (Auto) 0.47 (0.11-0.59) K/uL Eos # (Auto) 0.27 (0.00-0.50) K/uL Baso # (Auto) 0.03 (0.00-0.20) K/uL Immature Gran # (Auto) 0.02 (0.01-0.20) K/uL Sodium 136 (136-145) mmol/L Potassium 4.4 (3.5-5.1) mmol/L Chloride 101 (98-107) mmol/L Carbon Dioxide 30 (21-32) mmol/L Anion Gap 5 (3-11) BUN 23 (6-23) mg/dl Creatinine 0.84 (0.6-1.2) mg/dl Est Cr Clr Drug Dosing 46.5 ml/min Est GFR ( Amer) 77.7 ml/min Est GFR (Non-Af Amer) 67.0 ml/min BUN/Creatinine Ratio 27.4 H (10-20) Glucose 166 H (70-99(Fasting)) mg/dl POC Glucose 132 H (70-99) mg/dl Estimat Average Glucose mg/dl Hemoglobin A1c (4.5-5.6) % Calcium 8.8 (8.6-10.3) mg/dl Magnesium 1.9 (1.7-2.4) mg/dl Troponin I High Sens 37.5 H (0-14) pg/ml 04/09/24 Range/Units 19:29 WBC (4.8-10.8) K/ul RBC (4.20-5.40) M/uL Hgb (12.0-16.0) g/dl Hct (37.0-47.0) % MCV (80.0-100.0) fL MCH (25.0-34.0) pg MCHC (32.0-36.0) g/dL RDW Std Deviation (36.4-46.3) fL RDW Coeff of Levon (11.5-14.5) % Plt Count (130-400) K/uL MPV (9.4-12.4) fL Immature Gran % (Auto) % Neut % (Auto) % Lymph % (Auto) % [place]calfe % (Auto) % Eos % (Auto) % Baso % (Auto) % Neut # (Auto) (1.40-6.50) K/uL Lymph # (Auto) (1.20-3.40) K/uL Metcalfe # (Auto) (0.11-0.59) K/uL Eos # (Auto) (0.00-0.50) K/uL Baso # (Auto) (0.00-0.20) K/uL Immature Gran # (Auto) (0.01-0.20) K/uL Sodium (136-145) mmol/L Potassium (3.5-5.1) mmol/L Chloride (98-107) mmol/L Carbon Dioxide (21-32) mmol/L Anion Gap (3-11) BUN (6-23) mg/dl Creatinine (0.6-1.2) mg/dl Est Cr Clr Drug Dosing ml/min Est GFR ( Amer) ml/min Est GFR (Non-Af Amer) ml/min BUN/Creatinine Ratio (10-20) Glucose (70-99(Fasting)) mg/dl POC Glucose 293 H (70-99) mg/dl Estimat Average Glucose mg/dl Hemoglobin A1c (4.5-5.6) % Calcium (8.6-10.3) mg/dl Magnesium (1.7-2.4) mg/dl Troponin I High Sens (0-14) pg/ml Medications Administered Current Inpatient Medications Acetaminophen (Acetaminophen 325 Mg Tab) 650 mg PO QID PRN PRN Reason: pain/fever Stop: 05/09/24 21:48 Albuterol (Albut/Ipratrop 3mg/0.5mg Neb 3 Ml Vial) 3 ml NEB Q2H PRN; Protocol PRN Reason: sob wheeze Stop: 05/09/24 22:26 Azelastine HCl (Azelastine Hcl 0.1% Nasal 200 Sprays/27,400 Mcg Btl) 2 sprays ANDREW BID [facility] Stop: 05/10/24 08:59 Last Admin: 04/10/24 08:04 Dose: 2 sprays Dextrose (Dextrose 50% 50 Ml Syringe) 25 - 50 ml IV UD PRN; Protocol PRN Reason: Hypoglycemia Protocol Stop: 05/09/24 21:44 Enoxaparin Sodium (Enoxaparin Inj 40 Mg/0.4 Ml Syr) 40 mg SQ QAM [facility] Stop: 05/10/24 08:59 Last Admin: 04/10/24 08:05 Dose: Not Given Glucagon (Glucagon For Inj 1 Mg Vial) 1 mg SQ UD PRN; Protocol PRN Reason: Hypoglycemia Protocol Stop: 05/09/24 21:44 Glucose (Glucose 40% Gel 15 Gm Tube) 15 - 30 gm PO UD PRN; Protocol PRN Reason: Hypoglycemia Protocol Stop: 05/09/24 21:44 Glucose (Glucose 10 Tab/Tube) 4 - 8 tab PO UD PRN; Protocol PRN Reason: Hypoglycemia Treatment Stop: 05/09/24 21:44 Promethazine HCl 6.25 mg/ (Sodium Chloride) 50.25 mls @ 201 mls/hr IV Q6H PRN PRN Reason: Nausea And Vomiting Stop: 05/09/24 21:48 Insulin Aspart (Insulin Aspart Per Unit Charge) 0 units SC ACHS [facility] Stop: 05/10/24 12:29 Last Admin: 04/10/24 17:24 Dose: 5 units Insulin Glargine (Lantus Per Unit Charge) 20 units SC HS [facility] Stop: 05/10/24 20:59 Lisinopril (Lisinopril 10 Mg Tab) 10 mg PO DAILY [facility] Stop: 05/10/24 08:59 Last Admin: 04/10/24 08:06 Dose: 10 mg Lorazepam (Lorazepam 0.5 Mg Tab) 0.5 mg PO TID PRN PRN Reason: Anxiety Stop: 05/09/24 21:48 Metoprolol Succinate (Metoprolol Succ 25mg Ext Rel Tab) 25 mg PO DAILY [facility] Stop: 05/10/24 08:59 Last Admin: 04/10/24 08:06 Dose: 25 mg Miscellaneous (Carbohydrates For Hypoglycemia ) 15 - 30 gm PO UD PRN PRN Reason: Hypoglycemia Protocol Stop: 05/09/24 21:44 Miscellaneous (Symbicort 160/4.5 - Order Awaiting Action) 1 each N/A QS [facility] Stop: 05/10/24 07:59 Last Admin: 04/10/24 17:12 Dose: Not Given Morphine Sulfate (Morphine Sulfate 4 Mg/Ml 1 Ml Carp\Vial) 4 mg IV Q4H PRN PRN Reason: Pain Stop: 04/23/24 21:48 Last Admin: 04/10/24 18:27 Dose: 4 mg Oxycodone HCl (Oxycodone Hcl Ir 5 Mg Tab (Immediate Release)) 5 mg PO Q4H PRN PRN Reason: Pain Stop: 04/23/24 21:48 Last Admin: 04/10/24 17:23 Dose: 5 mg Pantoprazole Sodium (Pantoprazole 40 Mg Tab) 40 mg PO BID [facility] Stop: 05/10/24 08:59 Last Admin: 04/10/24 08:06 Dose: 40 mg Rosuvastatin Calcium (Rosuvastatin Calcium 5 Mg Tab) 5 mg PO DAILY [facility] Stop: 05/10/24 08:59 Last Admin: 04/10/24 08:06 Dose: 5 mg (1) Chest pain Chest pain type: other chest pain Qualified Code(s): R07.89 - Other chest pain
[2024-04-10] MEDS: LANTUS PER UNIT CHARGE SC SCH (20:29)
[2024-04-10] MEDS ORDERED: INSULIN ASPART PER UNIT CHARGE SC SCH (22:30)
[2024-04-11 06:50] LABS: Hematocrit (blood only) 38.9 % (37.0-47.0); Hemoglobin 12.7 g/dl (12.0-16.0); Mean Corpuscular Hemoglobin 28.5 pg (25.0-34.0); Mean Corpuscular Hgb Conc 32.6 g/dL (32.0-36.0); Mean Corpuscular Volume 87.4 fL (80.0-100.0); Mean Platelet Volume 9.5 fL (9.4-12.4); Platelet Count 268 K/uL (130-400); RDW Coefficient of Variation 13.4 % (11.5-14.5); RDW Standard Deviation 43.2 fL (36.4-46.3); Red Blood Count 4.45 M/uL (4.20-5.40)
[2024-04-11 07:14] LABS: BUN Creatinine Ratio 25.8 (10-20); Calcium 9.1 mg/dl (8.6-10.3); Chol HDL Ratio 3.5 (0-5); Est GFR (African American) 68.7 ml/min; Est GFR (Non-African American) 59.3 ml/min; Magnesium 2.1 mg/dl (1.7-2.4); Phosphorus 4.2 mg/dl (2.5-4.9); Potassium 4.1 mmol/L (3.5-5.1)
--- NOTE | 2024-04-11 11:49 | Discharge Summary ---
Date of Service April 11, 2024 Admission HPI Per Admitting Provider This is a 78-year-old female with PMH of type 2 diabetes (a1c 9.4 in Dec 16), dyslipidemia, asthma, GERD and other medical problems listed below who presents from home with chest pain. Patient reports she was sitting at home on her couch this afternoon around 230pm when she developed sudden onset pressure to left side of chest. Pain radiated to the back of her shoulder and down her left arm to her elbow. Pain has been constant and was only slightly relieved with the nitroglycerin of her 's she took at home and then again in ED. Pain is still a 4/10. Denies any history of known CAD or chest pain in the past. Does have history of diabetes with most recent A1c 9.4 in late November of this year. Also endorses mother having an WI in her 60s. Patient denies any fever, chills, headache, lightheadedness, palpitations, shortness of breath, nausea, vomiting, abdominal pain, dysuria, diarrhea or constipation. No recent medication changes. Does state her blood sugar is typically elevated in the 2-3 100s in the evening and then dips into the 40s or 50s overnight, prompting her to get up and drink some orange juice. No previous echo in outpatient EMR per review. Admission Exam Per Admitting Provider General Appearance: WD/WN, vitals as above, NAD, sitting up in bed, conversing easily Head: normocephalic, atraumatic Eyes: normal inspection, PERRL, conjunctivae normal, anicteric sclerae ENT: external ear and nose normal, oropharynx normal Neck: normal visual inspection, trachea midline, no thyromegaly Respiratory: normal respiratory effort, lungs clear to auscultation, no wheeze, rales, rhonchi. No accessory muscle use Cardiovascular: regular rate, rhythm, no murmur, normal peripheral pulses, no BLE edema. Vessels: no JVD Chest: normal inspection of chest, CP not reproducible with palpation Abdomen/GI: normal bowel sounds, soft, nontender, no hepatosplenomegaly Extremities/Musculoskeletal: no cyanosis or clubbing, extremities motor strength 5/5 Neurologic: PERRL, EOMI, accommodation nl, no face palsy, no dysarthria, CN's II-XI intact bilaterally and moves all extremities Psychiatric: A+Ox3, euthymic affect Skin: no rashes, normal color, warm/dry Principal Diagnosis Chest pain - atypical L Shoulder pain - hx of previous surgeries Uncontrolled DM, hyperglycemia Discharge Exam General Appearance: WD/WN, F in NAD Head: normocephalic, atraumatic Eyes: normal inspection, PERRL ENT: external ear and nose normal, oropharynx normal Neck: normal visual inspection Respiratory: normal respiratory effort, lungs clear to auscultation Cardiovascular: regular rate, rhythm, no murmur, normal peripheral pulses, no BLE edema Chest: normal inspection of chest Abdomen/GI: normal bowel sounds, soft, nontender Extremities/Musculoskeletal: extremities motor strength 5/5 Neurologic: PERRL, EOMI, no face palsy, no dysarthria, moves all extremities Psychiatric: A+Ox3, euthymic affect Skin: no rashes, normal color, warm/dry Discharge Data Allergies Allergy/AdvReac Type Severity Reaction Status Date / Time No Known Allergies Allergy Unknown Verified 04/09/24 19:39 Consultations 04/09/24 19:54 ED Decision to Admit Stat 04/10/24 08:33 Consult Cardiology Routine Ordered Studies 04/09/24 19:50 CT angio chest PE protocol Stat FINDINGS: Pulmonary arteries: No pulmonary embolism. Aorta: No thoracic aortic aneurysm or dissection. Lungs: No consolidation. Minimal peribronchial thickening. Pleural space: No pleural effusion. No pneumothorax. Heart: No cardiomegaly. No pericardial effusion. No evidence of RV dysfunction. Mediastinum: Small hiatal hernia. Bones/joints: No acute fracture. Degenerative changes of the spine. Soft tissues: Unremarkable. Lymph nodes: Unremarkable. No enlarged lymph nodes. IMPRESSION: No pulmonary embolism. Minimal peribronchial thickening. No associated pneumonia. Diabetes Follow up Diabetes Follow-up Needed for HgbA1c >9% Hospital Course (1) Chest pain: 78 yo F with uncontrolled type 2 diabetes, dyslipidemia, asthma, GERD who presents from home with chest pain that came on suddenly at rest at 2:30pm. CT PE obtained in ED - No pulmonary embolism. Minimal peribronchial thickening. No associated pneumonia. Left-sided chest pain , L shoulder painunresponsive to nitroglycerin. Highest SBP of 180s documented at the ER. Chest pain possibly from uncontrolled hypertension, however pt has Left shoulder pain on and off and reports prior surgeries on that shoulder as well Troponin elevation secondary to above PCU Titrate home lisinopril- increased to 10 mg daily Follow troponin- downtrended from 38 to 25 Echo obtained - LV systolic function is normal. LVEF 60 to 65%. There is mild concentric LVH. There is mild mitral regurg Cardiology consulted - pt underwent stress test - Exercise stress echo negative for inducible ischemia. Hypertensive blood pressure response to exercise recorded. No further inpatient cardiac testing or intervention recommended at this time. Hiatal hernia noted on CT. Consider GI consultation. L shoulder pain - pt reports last time seen by orthopedic surgeon, Dr. Jha - recommend follow up - pain management w/ tylenol, lidocaine patch, sling, oxycodone DM2, insulin requiring, suboptimal control as of recent hemoglobin A1c of 9.26 November 2023 Basal bolus insulin, ISS BG goal 110-140, carb count coverage updated current hemoglobin A1c 10.1% inclusion special educator consulted with - recommend splitting home levemir to two - 14 units BID doses, and [facility] follow up Hyperlipidemia on statin Rx GERD stable on regimen Total Time Total Time Spent Total Time Spent (In Minutes): 40 Discharge Plan Discharge Items Patient Disposition: Home - Self-Care Reason For Visit: SHORTNESS OF BREATH Discharge Diagnosis: Chest pain - atypical L Shoulder pain - hx of previous surgeries Uncontrolled DM, hyperglycemia Activity: Per Instructions section Non-emergency contact: Primary Care Provider and Surgeon Call non-emergency contact if: you have any medication questions and your symptoms worsen Follow-up/Referrals: Anders Patel MD [Primary Care Provider] - (Date & Time 04/19/2024 10:00 AM Provider Anders Patel MD [facility] ) Krishan Jha DO [Physician] - 05/28/24 3:00 pm Diet: Carb Consistent or DM2 and Heart Healthy Addtl Attending Provider Instructions: Follow up with your primary care doctor and orthopedic surgeon (Dr. Jha). Your blood pressure medication - lisinopril - was increased to 10 mg daily. Your levemir insulin was split in two as recommended by assistant health educator. Your hemoglobin A1c is elevateded at 10.1% - you need to closley follow up with your primary care doctor and possibly with [facility] clinic to get your blood sugar levels under better control. For pain, take Tylenol 1000 mg three times a day. For more severe pain, take oxycodone as needed as prescribed. You can also use lidocaine patch, you can obtain these over the counter, often under the name Salonpas. Pending Studies at Discharge: No Stand-Alone Forms: My [facility], Smoking Cessation Medications and DC Order Prescriptions: New lisinopril 10 mg Tablet 10 mg PO DAILY Qty: 30 0RF oxycodone 5 mg Tablet 5 mg PO Q4H PRN (Reason: pain) Qty: 14 0RF Continued albuterol sulfate 2.5 mg /3 mL (0.083 %) solution for nebulization 2.5 mg inhalation Q6H PRN (Reason: Wheezing) metformin 850 mg tablet 850 mg PO BID calcium carbonate [Calcium 500] 500 mg calcium (1,250 mg) Tablet 1,000 mg PO DAILY omeprazole 20 mg capsule,delayed release(DR/EC) 20 mg PO BID furosemide 20 mg tablet 36 mg PO DAILY PRN (Reason: Fluid Retention) Rx Instructions: PER PT "USE EVERY DAY, IF I STOP FOR 1 DAY, GAIN 5 #". metoprolol succinate 25 mg tablet extended release 24 hr 25 mg PO DAILY azelastine 137 mcg (0.1 %) Aerosol,[place] 2 spray INTRANASAL BID Rx Instructions: administer into each nostril ketoconazole 2 % Cream 1 applic TOPICAL DIRECTED PRN (Reason: AFFECTED AREAS ON FACE ) sodium chloride 0.9 % Solution For Nebulization 3 ml INHALATION QID PRN (Reason: NEEDED PER PT.) ipratropium bromide 21 mcg (0.03 %) spray,non-aerosol 2 spray INTRANASAL QID Premarin 0.3 mg tablet 0.3 mg PO DAILY rosuvastatin 5 mg tablet 5 mg PO DAILY budesonide-formoterol [Symbicort] 160-4.5 mcg/actuation Hfa Aerosol Inhaler 2 puff INHALATION BID PRN (Reason: NEEDED PER PT) Jardiance 25 mg tablet 25 mg PO QAM Changed insulin detemir U-100 100 unit/mL (3 mL) Insulin Pen 14 unit SUBCUT BID Qty: 15 0RF Rx Instructions: TAKES AT 2100 Discontinued lisinopril 5 mg tablet 5 mg PO DAILY Discharge Orders: Discharge Order (Routine); Ordered 04/11/24 Ordered By: Darion Mcdaniels Admission Data Admit Date/Time: 04/09/24 21:44 Attending Provider: Darion Mcdaniels Admit Provider: Albert Shahid Primary Care Provider: Anders Patel Other Providers: Albert Shahid; Homer Shea; Anjel Gaytan
[2024-04-11] MEDS: LIDOCAINE 5% 1 PATCH TD STA (13:55)
== END 2024-04-11 14:30 | disposition home or self-care (01) ==
LOC: EDINP 17:44 → ED 17:44 → SUATTDRO 21:44 → 2E 04-10 01:27